=== PATIENT | female | born 1960 | race Caucasian/White ===

== ENCOUNTER 2020-08-17 08:21 | Outpatient (REF) | payer BC, SELFPAY ==
[2020-08-17 09:55] LABS: Alanine Aminotransferase 23 U/L (0-31); Albumin Level 4.5 g/dL (3.5-5.0); Alkaline Phosphatase 57 U/L (39-117); Anion Gap 12 (12-20); Aspartate Amino Transferase 19 U/L (5-31); Bilirubin Total 0.5 mg/dL (0.0-1.0); Blood Urea Nitrogen 16 mg/dL (9-16); Calcium 9.2 mg/dL (8.4-10.2); Carbon Dioxide 30 mmol/L (22-29); Chloride 102 mmol/L (96-108); Cholesterol 185 mg/dL; Estimated Glomerular Filt Rate > 60; Glucose Fasting 98 mg/dL (60-99); HDL Cholesterol 64 mg/dL; LDL Cholesterol Calculated 97 mg/dl; Potassium 4.6 mmol/l (3.3-5.1); Sodium 139 mmol/L (135-145); Total Protein 7.1 g/dL (6.5-8.0); Triglycerides 123 mg/dL
[2020-08-17 10:17] LABS: TSH reflex Free T4 1.63 mIU/mL (0.32-4.0)
== END 2020-08-17 08:22 | disposition home or self-care (01) ==
LOC: HO.LAB 08:21
PROVIDERS: Visit Provider Family Medicine
DX: Z00.00 Encounter for general adult medical examination without abnormal findings (principal)
CPT/HCPCS: 80053; 80061; 84443

== ENCOUNTER 2020-11-13 07:17 | Day surgery (SDC) | payer BC, SELFPAY ==
--- NOTE | 2020-11-12 10:39 | HO.ANESPROP2 ---
Documented by User: Suzy Taylor 11/12/20 13:44 HPI - Anesthesia Eval Consult details Narrative: 60yo F for Colonoscopy PMFSH Active Problems Active Problems: All Active Problems (Updated 11/09/20 @ 09:25 by Lucia Trevizo) Annual physical exam (Acute) Essential hypertension (Acute) Hyperlipidemia (Acute) Breast cancer screening by mammogram (Acute) Screening for colon cancer (Acute) Screening for cervical cancer (Acute) Screening for osteoporosis (Acute) Postmenopausal (Acute) Eczema of both external ears (Acute) Heart murmur (Acute) Mitral regurgitation (Acute) Past Medical History Medical History (Updated 11/12/20 @ 10:39 by Suzy Taylor) Elevated cholesterol HTN (hypertension) Hx of cardiac murmur Mitral regurgitation Surgical History Surgical History (Updated 11/09/20 @ 09:25 by Lucia Trevizo) H/O colonoscopy History of breast lump/mass excision Hx of section Social History Social History (Updated 11/13/20 @ 08:34 by Isabelle Son) Smoking Status: Never smoker Advance Directives Information Provided: No Meds Allergies Allergy/AdvReac Type Severity Reaction Status Date / Time No Known Allergies Allergy Verified 08/21/20 17:01 Home Medications Medication Instructions Recorded Confirmed Last Taken Type aspirin 81 mg tablet,delayed 81 mg PO DAILY 08/21/20 11/09/20 Unknown History release clobetasol 0.05 % topical ointment g TOPICAL Q OTHER DAY 08/21/20 Unknown History Exam Exam Date and Time: November 12, 2020 1039 Height,Weight and Vital Signs: Height 5 ft 1 in Weight 72.121 kg Narrative Narrative: Stress 2016 WNL Assessment and Plan Assessment Anesthesia Assessment: Chart Reviewed Documented by User: Isabelle Son 11/13/20 08:37 PMFSH Past Medical History Medical History (Updated 11/12/20 @ 10:39 by Suzy Taylor) Elevated cholesterol HTN (hypertension) Hx of cardiac murmur Mitral regurgitation Family History Family history of problems with anesthesia: No Surgical History Surgical History (Updated 11/09/20 @ 09:25 by Lucia Trevizo) H/O colonoscopy History of breast lump/mass excision Hx of section History of Problems with Anesthesia: Yes (PONV) Social History Social History (Updated 11/13/20 @ 08:34 by Isabelle Son) Smoking Status: Never smoker Advance Directives Information Provided: No Meds Allergies Allergy/AdvReac Type Severity Reaction Status Date / Time No Known Allergies Allergy Verified 08/21/20 17:01 Home Medications Medication Instructions Recorded Confirmed Last Taken Type aspirin 81 mg tablet,delayed 81 mg PO DAILY 08/21/20 11/09/20 Unknown History release clobetasol 0.05 % topical ointment g TOPICAL Q OTHER DAY 08/21/20 Unknown History Exam Height,Weight and Vital Signs: Vital Signs Temp Pulse Resp BP Pulse Ox 11/13/20 07:37 97.9 F 68 16 145/71 H 98 Airway Mallampati Class: II TM Dist: >3cm Neck ROM: Full Heart: RRR +?systolic murmur Lungs: CTAB Assessment and Plan Assessment Anesthesia Assessment: Anesthesia Plan Discussed and Chart Reviewed Final Anesthetic Review NPO: Yes ASA Class: II Final Preanesthetic Review: No Changes in Pt Med Stat, Meds/Allgs Chart Reviewed, Consent Obtained/Reviewed and Anes Risks/Benef Reviewed Patient Risk: Low Procedure Risk: Low Assessment/Block/Sedation in SS: Assess/Block/Sedation-SS Anesthetic Plan Anesthetic Plan: MAC: Disposition: Standard PACU
[2020-11-13 07:37] VITALS: BP 145/71; PULSE 68; RESP 16; TEMP 36.6; O2SAT 98
[2020-11-13] MEDS: Lactated Ringers 1,000 ML 100 ML IVCONT (07:49)
--- NOTE | 2020-11-13 08:07 | W.PM.OPN ---
Operative Note Operative Note Date of Service: 11/13/20 Narrative: Pre-op diagnosis: Colon cancer screening, min constipation Post-op diagnosis: other (Colon polyps, diverticulosis) Procedure: COLONOSCOPY TILL CECUM WITH BIOPSY, SNARE POLYPECTOMY AND SUBMUCOSAL INJECTION Consent: Indications for the procedure and potential complications of bleeding, perforation, reaction to medications and missed diagnosis were discussed with the patient and informed consent was obtained. Instrument: Olympus PCF H 190 L variable stiffness pediatric colonoscope Monitoring: Vital signs and clinical assessment, intermittent blood pressure monitoring, continuous EKG monitoring, Pulse oximetry and Carbon Dioxide monitoring were done throughout the procedure. Colon withdrawl time was 22 minutes. Procedure: The patient was placed in the left lateral decubitis position and pre-procedure medications were administered. After a digital rectal examination of the ano-rectum, the video colonoscope was inserted into the rectum and advanced through the colon to the cecum. The colonoscope was slowly withdrawn in a retrograde panoramic fashion and the colon mucosa was carefully examined including a retroflexed view of the rectum. Findings and interventions are described below. Procedure Difficulty: Colon was long and tortuous and there was some loop formation, no maneuvers were required Findings: Terminal Ileum: Not evaluated Cecum: A 4-5 mm flat polyp removed with a cold biopsy Ascending Colon: Normal Transverse Colon: A 1.5 to 2 cms flat polyp in the distal TC at 60 cms - raised with 2 cc of Orise solution (submucosal injection) and removed with a hot snare Descending Colon: Normal Sigmoid Colon: Moderate diverticulosis Rectum: Normal Ano-rectum: Perianal skin tags Colon preparation: Good after some irrigation (pt took 60% of her prep) Impression and Post Procedure Diagnosis: Colonoscopy Findings: Two small to medium sized polyps removed Moderate diverticulosis seen in the []colon Moderate hemorrhoids on retroflexed exam. Plan: Await pathology results Patient has an appointment on 11/30/20 in the [facility] with Larissa Boswell NP. Repeat Colonoscopy interval based on path results - in 3 years if polyps are adenomatous and 10 years if polyps are hyperplastic. Above findings were reviewed with the patient and colon polyps and diverticulosis handouts were given in the discharge area Surgeon: Ksenia Lepe MD Anesthesia: MAC (Jenny Jose CRNA & Dr Son) Estimated blood loss (mL): 0 Pathology: other (A. cecal polyp, B. TC polyp at 60 cms x 1) Condition: stable Disposition: PACU
--- NOTE | 2020-11-13 08:07 | MHC.SHP ---
Pre-Procedural Eval Section A The patient is an INPATIENT: No The History & Physical has been completed within 30 days and I have reviewed it.: No Section B Chief Complaint: screening Details of Present Illness: Colon cancer screening, intermittent constipation Relevant Family History (Specify if Yes): No Relevant Social History: None Present Medications: see Short Stay Collaborative assessment Medical History: Significant History (Hypertension. Hyperlipidemia. ) History of Previous Operations: Relevant previous surgery/procedure and date(s) ( section cyst removal right breast ) Allergies: Allergies Allergy/AdvReac Type Severity Reaction Status Date / Time No Known Allergies Allergy Verified 08/21/20 17:01 Review of Systems Sugical H&P ROS: Negative: Constitution, Cardiovascular and Respiratory and Yes, Specify: Gastrointestinal (Intermittent constipation) Exam Surgical H&P Exam: Normal: Heart, Normal: Lungs, Normal: Extremities and Normal: Abdomen Plan Diagnosis/Plan: Unchanged I have reviewed the history and physical and performed a pertinent physical examination on my patient. No changes have occurred unless specified.
[2020-11-13 09:09] VITALS: BP 117/60; PULSE 64; RESP 16; TEMP 36.7; O2SAT 99
[2020-11-13 09:24] VITALS: BP 129/70; PULSE 62; RESP 18; TEMP 36.7; O2SAT 98
== END 2020-11-13 10:06 | disposition home or self-care (01) ==
PROVIDERS: PCP Family Medicine; Visit Provider Internal Medicine Gastroenterology
PROC: 0DJD8ZZ Inspection of Lower Intestinal Tract, Via Natural or Artificial Opening Endoscopic (ICD-10-PCS; CPT 45378; principal; 2020-11-13 08:20)
DX: Z12.11 Encounter for screening for malignant neoplasm of colon (principal); D12.0 Benign neoplasm of cecum; D12.3 Benign neoplasm of transverse colon; K57.30 Diverticulosis of large intestine without perforation or abscess without bleeding; K64.8 Other hemorrhoids; K64.4 Residual hemorrhoidal skin tags; I10 Essential (primary) hypertension; Z79.899 Other long term (current) drug therapy
CPT/HCPCS: 45385; 45380; 45381; 88305; J2405

== ENCOUNTER → 2020-11-30 09:17 | Outpatient (BNVA) | payer BC, SELFPAY | PROVIDERS: PCP Family Medicine; Visit Provider Nurse Practitioner ==

== ENCOUNTER → 2021-11-18 07:37 | Outpatient (REF) | payer BC, SELFPAY ==
--- NOTE | 2021-11-18 07:46 | CA_ITS ---
Transthoracic Echocardiogram Patient (Last, First, Middle): Zoya Jeffery M Gender: Female Date of : 1960 Age: 61 Procedure Date: 11/18/2021 Procedure Type: Transthoracic Echocardiogram Location: OP Height: 154.94 cm Weight: 76.2 kg BSA: 1.75 m2 Heart Rate: bpm BP: 131 / 78 mmHg Washing Machine Repairer: TREMAINE Referring MD: Víctor Cat MD Symptoms: R01.1 - Cardiac murmur, unspecified Study Quality: Fair ECG Rhythm: Sinus Conclusions: - The left ventricular systolic function is normal. The calculated ejection fraction is 62% by biplane method. - There is mild to moderate aortic valve stenosis. Findings Left Ventricle Normal left ventricular cavity size. There is normal left ventricular wall thickness. The left ventricular systolic function is normal. The calculated ejection fraction is 62% by biplane method. There is no evidence of regional wall motion abnormalities. Diastolic function is normal for age. Right Ventricle Normal right ventricular cavity size and systolic function. Atria Both atria are normal in size. Aortic Valve There is mild calcification of the aortic valve. There is mild to moderate aortic valve stenosis. The peak aortic velocity is 2.89 m/s with a calculated peak gradient of 33 mmHg. The mean gradient is 18 mmHg. The aortic valve area is 1.04 cm2. There is no aortic valve regurgitation. Dimensionless index 0.35. Stroke volume index 41cc. Mitral Valve The mitral valve appears normal. There is trace mitral valve regurgitation. There is no mitral valve stenosis. Pulmonic Valve The pulmonic valve was not well visualized. Tricuspid Valve There is trace tricuspid valve regurgitation. The pulmonary artery systolic pressure is normal. Great Vessels The asc aorta and aortic arch are normal in size. Venous The inferior vena cava is normal in size and collapses greater than 50% with inspiration. Pericardium/Pleural There is a trivial pericardial effusion. Prior Study Comparison Changes noted compared to prior study dated: 12/30/2010. Progression of aortic valve stenosis. Measurements 2D Linear Measurements IVSd: 0.96 0.6-0.9/0.6-1.0 cm LVIDd: 5.19 3.9-5.3/4.2-5.9 cm LVIDd Index: 2.97 2.4-3.2/2.2-3.1 cm/m2 LVIDs: 3.50 2.0-3.6 cm LVPWd: 0.92 0.7-1.1 cm LA Diam: 4.30 2.7-3.8/3.0-4.0 cm LAIDs Index: 2.46 1.5-2.3 cm/m2 LV Mass: 221.83 67-162/88-224 g LV Mass Index: 126.76 43-95/49-115 g/m2 LVOT Diam: 2.00 3.0+(-)1.3 cm 2D Systolic Function EF 4C: 58.40 >55% EF 2C: 64.80 >55% EF BiP: 61.70 >55% Mitral Valve MV Pk E: 0.94 MV PK A: 0.86 MV Decel Time: 173.00 E/A: 1.10 E'Lateral: 7.83 E'Medial: 8.05 E/E' Med: 11.70 E/E' Lat: 12.00 PHT: 51.00 MVA PHT: 4.31 Decel [place]: 5.46 Aortic Valve AoV Pk Ryland: 2.89 AoV Mn Ryland: 1.99 AoV VTI: 0.70 AoV Pk Grad: 33.00 Aov Mn Grad: 18.00 KEENAN Cont.VTI: 1.04 LVOT LVOT Pk [place]: 1.02 LVOT Mn [place]: 0.79 LVOT VTI: 0.23 LVOT Pk Grad: 4.00 LVOT Mn Grad: 3.00 LVOT Diam: 2.00 LVOT Area: 3.14 Diastolic Function MV Pk E: 0.94 MV Pk A: 0.86 E/A: 1.10 E'Medial: 8.05 E/E' Med: 11.70 E' Laterial: 7.83 E/E' Lat: 12.00 Right Ventricle TAPSE (mm): 25.60 TVS' R[place]: 11.20 Tricuspid Valve TR Pk Ryland: 2.44 TR Pk Grad: 24.00 RA Press: 3.00 RVSP: 27.00 Great Vessels Aorta Sinus of Valsalva: 2.37 2.0-3.[address] [place]: 1.78 1.7-3.4 cm Ao Asc: 2.90 2.1-3.4 cm Ao Arch: 2.70 Updated in Other Vendor System with Status of Final Melo Balderas MD electronically signed on 11/19/2021 11:40:53 AM with status of Final
[2021-11-18 09:33] LABS: Alanine Aminotransferase 26 U/L (0-31); Albumin Level 4.5 g/dL (3.5-5.0); Alkaline Phosphatase 63 U/L (39-117); Anion Gap 15 (12-20); Aspartate Amino Transferase 22 U/L (5-31); Bilirubin Total 0.2 mg/dL (0.0-1.0); Blood Urea Nitrogen 17 mg/dL (9-16); Calcium 9.7 mg/dL (8.4-10.2); Carbon Dioxide 25 mmol/L (22-29); Chloride 105 mmol/L (96-108); Cholesterol 181 mg/dL; Estimated Glomerular Filt Rate > 60; Glucose Fasting 103 mg/dL (60-99); HDL Cholesterol 65 mg/dL; LDL Cholesterol Calculated 98 mg/dl; Potassium 4.8 mmol/L (3.3-5.1); Sodium 140 mmol/L (135-145); Total Protein 7.8 g/dL (6.5-8.0); Triglycerides 90 mg/dL
[2021-11-18 09:40] LABS: Microalbumin Urine < 5.0 mg/L
[2021-11-18 09:45] LABS: TSH reflex Free T4 1.39 uIU/mL (0.32-4.0)
== END ==
LOC: HO.CARD 07:37
PROVIDERS: PCP Family Medicine; Visit Provider Family Medicine
DX: Z00.00 Encounter for general adult medical examination without abnormal findings (principal); R01.1 Cardiac murmur, unspecified; I10 Essential (primary) hypertension
CPT/HCPCS: 36415; 80053; 80061; 82043; 84443; 93306

== ENCOUNTER → 2022-01-07 14:41 | Outpatient (BNVA) | payer BC, SELFPAY | PROVIDERS: PCP Family Medicine; Referring Provider Family Medicine; Visit Provider Internal Medicine | DX: Z13.89 Encounter for screening for other disorder (principal) ==

== ENCOUNTER → 2022-01-17 07:53 | Outpatient (REF) | payer BC, SELFPAY ==
--- NOTE | 2022-01-17 07:58 | CA_ITS ---
Acquisition Time: 2022-01-17 08:11:30 Total Exercise Time: 00:09:00 Test Indications: HEART DISEASE Medications: SEE CHART Protocol: WAGNER Max HR: 151 BPM 96% of Pred: 157 BPM Max BP: 190/062 mmHG Max Work Load: 10.1 METS Exercise stress test with exercise 9 min of Wagner protocol, without anginal symptom or report of lightheadedness, with isolated PACs, atrial cuplets and triplets, with normotensive response to exercise, without EKG chnages meeting criteria for ischemia. Test reviewed with Dr Abad Referred By: Melo Balderas Overread By: NIKOLAS LEMUS
== END ==
LOC: HO.CARD 07:53
PROVIDERS: PCP Family Medicine; Visit Provider Internal Medicine
DX: R01.1 Cardiac murmur, unspecified (principal); Z82.49 Family history of ischemic heart disease and other diseases of the circulatory system
CPT/HCPCS: 93017

== ENCOUNTER → 2023-01-05 07:57 | Outpatient (REF) | payer BC, SELFPAY ==
--- NOTE | 2023-01-05 08:00 | CA_ITS ---
Transthoracic Echocardiogram Patient (Last, First, Middle): Zoya eJffery M Gender: Female Date of : 1960 Age: 63 Procedure Date: 01/05/2023 Procedure Type: Transthoracic Echocardiogram Location: OP Height: 152.4 cm Weight: 73.48 kg BSA: 1.71 m2 Heart Rate: bpm BP: 124 / 68 mmHg Tube Coremaker: Referring MD: Melo Balderas MD Open Hearth Furnace Operator: Kemal Abad MD Symptoms: I35.0 - Nonrheumatic aortic (valve) stenosis Study Quality: Good ECG Rhythm: Sinus Conclusions: - 1. Normal LV systolic function with LVEF of 60 65% 2. Moderate aortic stenosis with mean gradient of 19 mmHg 3. Normal RV systolic pressure 4. No gross pericardial effusion Findings Left Ventricle Normal left ventricular size, thickness, and systolic function. The visually estimated ejection fraction is between 60-65%. Spectral Doppler is indicative of a normal filling pattern. Right Ventricle Normal right ventricular cavity size and systolic function. Atria The left atrium is likely dilated. Interatrial shunt cannot be excluded. The right atrium is normal in size. Aortic Valve The aortic valve was not well visualized. There is moderate aortic valve stenosis. The peak aortic gradient is 39 mmHg.The mean gradient is 19 mmHg. The aortic valve area is 1.01 cm2. There is no aortic valve regurgitation. calculated valve area is smaller than expected with the gradient, most likely due to calculated LVOT area. Dimensionless index is in the moderate severity range Mitral Valve There is mild anterior and posterior mitral leaflet thickening. There is trace mitral valve regurgitation. There is no mitral valve stenosis. Pulmonic Valve The pulmonic valve was not well visualized. Tricuspid Valve Normal tricuspid valve structure. There is mild tricuspid valve regurgitation. The right ventricular systolic pressure is normal. The right ventricular systolic pressure is 24 mmHg. Normal right atrial pressure. There is no evidence of pulmonary hypertension. Great Vessels All visible segments of the aorta are normal in size. The pulmonary artery was not well visualized. Venous The inferior vena cava is normal in size and collapses greater than 50% with inspiration. Pericardium/Pleural There is no evidence of pericardial effusion. Prior Study Comparison Changes noted compared to prior study dated: 11/18/2021. aortic stenosis in moderate range Measurements 2D Linear Measurements IVSd: 1.09 0.6-0.9/0.6-1.0 cm LVIDd: 4.20 3.9-5.3/4.2-5.9 cm LVIDd Index: 2.46 2.4-3.2/2.2-3.1 cm/m2 LVIDs: 2.33 2.0-3.6 cm LVPWd: 1.07 0.7-1.1 cm Ao Root: 2.70 2.1-3.5 cm LA Diam: 3.90 2.7-3.8/3.0-4.0 cm LAIDs Index: 2.28 1.5-2.3 cm/m2 LV Mass: 190.50 67-162/88-224 g LV Mass Index: 111.40 43-95/49-115 g/m2 LVOT Diam: 1.90 3.0+(-)1.3 cm Mitral Valve MV Pk E: 0.76 MV PK A: 0.85 MV Decel Time: 186.00 E/A: 0.90 E'Lateral: 7.72 E'Medial: 6.09 E/E' Med: 12.50 E/E' Lat: 9.80 PHT: 55.00 MVA PHT: 4.00 Decel [place]: 4.08 Aortic Valve AoV Pk Ryland: 3.12 AoV Mn [place]: 2.00 AoV VTI: 0.73 AoV Pk Grad: 39.00 Aov Mn Grad: 19.00 KEENAN Cont.VTI: 1.01 LVOT LVOT Pk [place]: 1.03 LVOT Mn [place]: 0.73 LVOT VTI: 0.26 LVOT Pk Grad: 4.00 LVOT Mn Grad: 2.00 LVOT Diam: 1.90 LVOT Area: 2.84 Diastolic Function MV Pk E: 0.76 MV Pk A: 0.85 E/A: 0.90 E'Medial: 6.09 E/E' Med: 12.50 E' Laterial: 7.72 E/E' Lat: 9.80 Right Ventricle TAPSE (mm): 29.00 TVS' [place]: 11.00 Tricuspid Valve TR Pk [place]: 2.31 TR Pk Grad: 21.00 RA Press: 3.00 RVSP: 24.00 Great Vessels Aorta Ao Root-2D: 2.70 2.0-3.7 cm Ao Asc: 2.50 2.1-3.4 cm Pulmonary Valve PV Pk [place]: 1.19 Peak PV Grad: 6.00 Updated in Other Vendor System with Status of Final Kemal Abad MD electronically signed on 01/06/2023 6:46:32 PM with status of Final
== END ==
LOC: HO.CARD 07:57
PROVIDERS: PCP Family Medicine; Visit Provider Internal Medicine
DX: I35.0 Nonrheumatic aortic (valve) stenosis (principal)
CPT/HCPCS: 93306

== ENCOUNTER → 2023-01-14 15:10 | Outpatient (BNVA) | payer BC, SELFPAY | PROVIDERS: PCP Family Medicine; Referring Provider Family Medicine; Visit Provider Internal Medicine | DX: I35.0 Nonrheumatic aortic (valve) stenosis (principal); I10 Essential (primary) hypertension | CPT/HCPCS: 93005 ==

== ENCOUNTER 2023-04-10 08:58 | Outpatient (REF) | payer BC, SELFPAY ==
[2023-04-10 13:40] LABS: Estimated Average Glucose 108 mg/dL; Hemoglobin A1c % 5.4 %
[2023-04-10 15:13] LABS: Appearance Urine Clear; Color Urine Yellow; Glucose Urine UA Negative (Negative); Leukocyte Esterase Urine Moderate (2+) (Negative); Nitrite Urine Negative (Negative); PH 7.5 (5.0-9.0); Specific Gravity - Urine <= 1.005 (1.005-1.025); UMIC TRIGGER UA YES; Urine Blood Negative (Negative); Urine Ketones Negative (Negative); Urine Protein Negative (Neg-Trace)
[2023-04-10 15:26] LABS: Alanine Aminotransferase 23 U/L (0-31); Albumin Level 4.2 g/dL (3.5-5.0); Alkaline Phosphatase 57 U/L (39-117); Anion Gap 14 (12-20); Aspartate Amino Transferase 17 U/L (5-31); Bacteria Urine None Seen (None Seen); Bilirubin Total 0.3 mg/dL (0.0-1.0); Blood Urea Nitrogen 12 mg/dL (9-16); Calcium 9.1 mg/dL (8.4-10.2); Carbon Dioxide 23 mmol/L (22-29); Chloride 106 mmol/L (96-108); Cholesterol 162 mg/dL; Estimated Glomerular Filt Rate > 60; Glucose Fasting 94 mg/dL (60-99); HDL Cholesterol 63 mg/dL; Hyaline Casts Urine 0-2 /LPF (0-2); LDL Cholesterol Calculated 74 mg/dl; Magnesium 2.2 mg/dL (1.6-2.6); Potassium 4.2 mmol/L (3.3-5.1); RBC Urine 0-2 /HPF (0-2); Sodium 139 mmol/L (135-145); Squamous Epithelial Cell Urine 0-2 /HPF (0-2); TSH reflex Free T4 1.47 uIU/mL (0.32-4.0); Total Protein 7.2 g/dL (6.5-8.0); Triglycerides 127 mg/dL; WBC Urine 0-5 /HPF (0-5)
[2023-04-10 17:03] LABS: Creatinine Urine 17.52 mg/dL; Microalbumin Urine < 5.0 mg/L
== END 2023-04-10 08:59 | disposition home or self-care (01) ==
LOC: HO.WFDLDS 08:58
PROVIDERS: Visit Provider Family Medicine
DX: Z00.00 Encounter for general adult medical examination without abnormal findings (principal); I10 Essential (primary) hypertension; R73.01 Impaired fasting glucose
CPT/HCPCS: 36415; 80053; 80061; 81001; 81003; 82043; 83036; 83735; 84443

== ENCOUNTER 2023-04-21 13:56 | Outpatient (AMB) | payer BC, SELFPAY ==
[2023-04-21 14:00] VITALS: BP 126/64; PULSE 67; O2SAT 98; BMI 31.2
--- NOTE | 2023-04-21 14:00 | MHC.PC.OV ---
Vital Signs 04/21/23 14:00 Height 5 ft 1 in Weight 165 lb BMI 31.2 BP 126/64 Blood Pressure Location Lt brachial Position Sitting Pulse 67 Pulse Source Pulse Oximeter Pulse Oximetry (%) 98 Oxygen Delivery Method Room Air Intake Visit Reasons: CPE with f/u labs and health maintenance Intake Note: Patient is here for physical and to follow up on labs. Allergies No Known Allergies Allergy (Verified 04/21/23 14:04) Tobacco use date assessed: 04/21/23 Dental Screening Dental Screen Date: 04/21/23 Did you have a dental visit in the last 12 months?: Yes Did you have a dental problem in the last 6 months where you did not have access to dental care?: No Was dental information given to patient?: Patient has dentist HPI CPE with f/u labs and health maintenance HPI Details 63 y/o female presents for a CPE with f/u labs and health maintenance. Labs were drawn 04/10/23. Reviewed labs with pt. Triglycerides 127. TC 162. LDL 74. HDL 63. A1c 5.4%. Hx of aortic stenosis. Blood pressure today is 126/64. She is on lisinopril 20mg and amlodipine 5mg daily. [facility] Medical History Annual physical exam Breast cancer screening by mammogram Elevated cholesterol HTN (hypertension) Hx of cardiac murmur Mitral regurgitation Screening for cervical cancer Surgical History H/O colonoscopy History of breast lump/mass excision Hx of section Family History Father Lymphoma Diabetes Heart disease Mother Heart attack Social History Housing: House Alcohol intake: current Alcohol intake frequency: a few times a week Patient Tobacco Use Status: Never used Tobacco e-Cigarette/Vaping Use: Never Used Second Hand Smoke Exposure: No service: No Current occupational status: employed Current occupational exposures/hazards: No Cognitive needs: No Hearing needs: No Vision needs: No Questionnaire Thrive Questionnaire Date Thrive assessed: 02/18/23 FAHAD-7 AMB Questionnaire FAHAD-7 Date FAHAD - 7 assessed: 03/14/22 Source: Developed by Drs. Otto Mckinnon, Cassandra Hart, Larry Reis and colleagues, with an educational edith from [employer]. Review of Systems Const Denies chills, Denies fatigue, Denies fever(s), Denies headache(s) and Denies weakness Eyes Denies change in vision ENT Denies dizziness, Denies headache(s), Denies hearing loss, Denies nasal congestion, Denies sinus pain, Denies sinus pressure and Denies sore throat Card Denies chest pain, Denies lightheadedness, Denies dyspnea and Denies other (palpitations) Resp Denies cough, Denies dyspnea and Denies wheezing GI Denies abdominal pain, Denies melena, Denies hematochezia, Denies change in bowel habits, Denies dyspepsia and Denies nausea Denies hematuria and Denies dysuria Musc Denies abnormal gait, Denies myalgias, Denies arthralgias, Denies numbness and Denies tingling Skin/Breast Denies rash, Denies unusual bruising and Denies wounds Neuro Denies abnormal gait, Denies dizziness, Denies headache(s), Denies memory loss, Denies numbness, Denies Sensory deficit (Neuro), Denies tingling and Denies weakness Psych Denies anxiety, Denies depression and Denies memory loss Endo Denies cold intolerance, Denies fatigue, Denies heat intolerance, Denies polydipsia and Denies polyuria Junior/Lymph Denies easy bleeding and Denies easy bruising Aller/Immun Denies wheezing Physical exam (Primary Care) Vital Signs: Last Vital Signs Pulse 67 04/21/23 14:00 BP 126/64 04/21/23 14:00 Pulse Ox 98 04/21/23 14:00 Oxygen Delivery Method Room Air 04/21/23 14:00 BMI result Body Mass Index 31.2 Tobacco/Smoking Status: Tobacco use Status Tobacco use date assessed 04/21/23 04/21/23 14:10 Patient Tobacco Use Status Never used Tobacco 04/21/23 14:03 e-Cigarette/Vaping Use Never Used 04/21/23 14:03 Thrive Assessment: Date of Thrive Assessment Date Thrive assessed 02/18/23 04/21/23 14:03 Const General: no acute distress, well developed, alert and awake Nutritional Appearance: well nourished Orientation/consciousness: patient oriented x3 HENMT Head: Yes normocephalic and Yes atraumatic Ears: hearing grossly normal bilaterally and TM's normal bilaterally General nose exam: Normal external nose present and Normal nares present Mouth: Normal oral and palatal mucosa present and moist mucous membranes Teeth and gingiva: dentition normal Throat: Yes posterior oropharynx normal Eyes General: appearance normal, both eyes and all related structures Pupils: Equal, round and reactive pupils present and Pupil accommodation reflex normal EOM: EOMs intact bilaterally Neck Neck: Yes normal visual inspection, Yes no lymphadenopathy and Yes trachea midline Thyroid: Thyroid normal Carotids: no bruits Lymphatic: no lymphadenopathy noted Chest Chest palpation & inspection: normal inspection of the chest Resp Effort & Inspection: normal respiratory effort Auscultation: clear to auscultation bilaterally Cardio Rate: regular rate Rhythm: regular rhythm Heart sounds: S1 normal heart sound present, S2 normal heart sound present, no gallops, Murmur heart sound present (3/6 murmur) and no rubs Bruits: no abdominal aortic bruits and no carotid bruits GI Palpation (GI): No Abdominal aortic bruit present, Soft to palpation, nontender, No hepatosplenomegaly present and No Rebound tenderness present Auscultation: normal bowel sounds General: Yes no CVA tenderness Back/Spine/Pelvis Back: no CVA tenderness Cervical Spine: cervical ROM normal and No Cervical spine tenderness Thoracic/Lumbar Spine: thoraco-lumbar ROM normal, No pain with thoraco-lumbar ROM, No thoracic spinal tenderness and No lumbar spinal tenderness Skin Lesions: no lesions Rashes: no rashes Trauma: no lacerations or abrasions Wounds: no wounds Nails: normal Neuro General: patient oriented x3 Cranial nerves: Yes Equal, round and reactive pupils present Cognition (Neuro): normal cognition Gait exam (Neuro): Normal gait present Motor exam (neuro): 5/5 motor strength present throughout Sensory Exam: No Sensory deficit (Neuro) Deep tendon reflexes (DTR's): Right patellar reflex intensity grade: 2+ and Left patellar reflex intensity grade: 2+ Extrem General: Yes normal to inspection and No edema Psych Appearance: grossly normal Affect: normal affect Attitude: cooperative Thought process: Normal thought process present Assessment and Plan Assessment & Plan (1) Adult general medical exam: Code(s): Z00.00 - Encounter for general adult medical examination without abnormal findings Plan: 63-year-old female presents for complete physical exam Encouraged healthy diet with active lifestyle and plenty of exercise (2) Essential hypertension: Code(s): I10 - Essential (primary) hypertension Plan: Blood pressure now at goal of less than 130/80 Continue current medication (3) Hyperlipidemia: Code(s): E78.5 - Hyperlipidemia, unspecified Plan: Lipids are controlled on simvastatin Continue current medication regimen Advised weight loss and exercise (4) Non-rheumatic aortic stenosis: Code(s): I35.0 - Nonrheumatic aortic (valve) stenosis Plan: Followed by cardiology at [facility] [place] Control blood pressure Continue to follow-up with Cardiology as recommended (5) Screening for colon cancer: Code(s): Z12.11 - Encounter for screening for malignant neoplasm of colon Plan: Last colonoscopy in 2020 showed polyps. She will have follow-up in 2023 (6) Immunization counseling: Code(s): Z71.85 - Encounter for immunization safety counseling Plan: Due for shingles shot and I recommended this (7) Screening for osteoporosis: Code(s): Z13.820 - Encounter for screening for osteoporosis Plan: Had prior to bone density testing for postmenopausal state. Will be due to begin screening next year (8) Breast cancer screening by mammogram: Code(s): Z12.31 - Encounter for screening mammogram for malignant neoplasm of breast Plan: Sep 2022 and was normal Managed by [facility] (9) Eczema of both external ears: Code(s): H60.543 - Acute eczematoid otitis externa, bilateral Plan: Currently no flare up. She can use set a fill or another moisturizing cream for prevention She can use betamethasone as she has in the past for any flare Coding Level of Care Code Est Pt Level 3 (16387) Est Pt Prev Care 40-64y(87947) Diagnoses Adult general medical exam Z00.00 Essential hypertension I10 Hyperlipidemia E78.5 Non-rheumatic aortic stenosis I35.0 Screening for colon cancer Z12.11 Immunization counseling Z71.85 Screening for osteoporosis Z13.820 Breast cancer screening by mammogram Z12.31 Eczema of both external ears H60.543
== END 2023-04-21 14:36 | disposition home or self-care (01) ==
PROVIDERS: PCP Family Medicine; Visit Provider Family Medicine
DX: Z00.00 Encounter for general adult medical examination without abnormal findings (principal); I10 Essential (primary) hypertension; E78.5 Hyperlipidemia, unspecified; I35.0 Nonrheumatic aortic (valve) stenosis
CPT/HCPCS: 99396

== ENCOUNTER 2023-08-21 10:43 | Outpatient (AMB) | payer BC, SELFPAY ==
[2023-08-21 10:58] VITALS: BP 134/76; PULSE 64; O2SAT 98; BMI 31.2
--- NOTE | 2023-08-21 10:58 | A.OFFPC_ITS ---
Vital Signs 08/21/23 10:58 Height 5 ft 1 in Weight 165 lb BMI 31.2 BP 134/76 Blood Pressure Location Lt brachial Position Sitting Pulse 64 Pulse Source Pulse Oximeter Pulse Oximetry (%) 98 Intake Visit Reasons: f/u hypertension and chronic conditions Intake Note: Patient is here to follow up on hypertension and chronic conditions. Allergies No Known Allergies Allergy (Verified 08/21/23 11:00) Tobacco use date assessed: 08/21/23 Fall risk assessment: No Falls in past year Last assessed Fall Risk: 08/21/23 HPI f/u hypertension and chronic conditions HPI Details 63 y/o female with hx of aortic stenosis presents to f/u hypertension. Blood pressure today 134/76. She is on amlodipine 5mg daily and lisinopril 20mg daily. She notes she has been stressed recently at work. REPLACED BY [facility] Medical History Annual physical exam Breast cancer screening by mammogram Elevated cholesterol HTN (hypertension) Hx of cardiac murmur Mitral regurgitation Screening for cervical cancer Surgical History H/O colonoscopy History of breast lump/mass excision Hx of section Family History Father Lymphoma Diabetes Heart disease Mother Heart attack Social History Housing: House Alcohol intake: current Alcohol intake frequency: a few times a week Patient Tobacco Use Status: Never used Tobacco e-Cigarette/Vaping Use: Never Used Second Hand Smoke Exposure: No service: No Current occupational status: employed Current occupational exposures/hazards: No Cognitive needs: No Hearing needs: No Vision needs: No Questionnaire PHQ-9 Over the last 2 weeks, how often have you been bothered by any of the following problems? 1. Little interest or pleasure in doing things: not at all 2. Feeling down, depressed, or hopeless: several days 3. Trouble falling or staying asleep, or sleeping too much: several days 4. Feeling tired or having little energy: not at all 5. Poor appetite or overeating: not at all 6. Feeling bad about yourself - or that you are a failure or have let yourself or your family down: not at all 7. Trouble concentrating on things, such as reading the newspaper or watching television: not at all 8. Moving or speaking so slowly that other people could have noticed. Or the opposite - being so fidgety or restless that you have been moving around a lot more than usual: not at all 9. Thoughts that you would be better off or of hurting yourself in some way: not at all Total score: 2 Depression Screening Interpretation: Negative Depression Screening Done: Yes Source: Developed by Drs. Otto Mckinnon, Cassandra Hart, Larry Reis and colleagues, with an educational edith from [employer]. Thrive Questionnaire Date Thrive assessed: 02/18/23 AUDIT C Alcohol Use Questionnaire (AUDIT-C) 1. How often do you have a drink containing alcohol?: 2-3 times a week 2. How many drinks containing alcohol do you have on a typical day when you are drinking?: 1 or 2 3. How often do you have six or more drinks on one occasion?: Never Total Score: 3 FAHAD-7 AMB Questionnaire FAHAD-7 Date FAHAD - 7 assessed: 08/21/23 Feeling nervous, anxious, or on edge: 1 = Several days Not being able to stop or control worryin = Not at all Worrying too much about different things: 0 = Not at all Trouble relaxin = Not at all Being so restless that it is hard to sit still: 0 = Not at all Becoming easily annoyed or irritable: 0 = Not at all Feeling afraid as if something awful might happen: 0 = Not at all Total FAHAD-7 score (0-4 normal; 5-9 mild; 10-14 moderate; 15-21 severe): 1 Source: Developed by Drs. Otto Mckinnon, Cassandra Hart, Larry Reis and colleagues, with an educational edith from [employer]. Review of Systems Const Denies chills, Denies fatigue, Denies fever(s), Denies headache(s) and Denies weakness ENT Denies dizziness and Denies headache(s) Card Denies dyspnea Resp Denies cough, Denies dyspnea, Denies wheezing and Denies other (shortness of breath) Musc Denies numbness and Denies tingling Neuro Denies dizziness, Denies headache(s), Denies numbness, Denies tingling and Denies weakness Psych Denies anxiety and Denies depression Endo Denies fatigue Aller/Immun Denies wheezing Physical exam (Primary Care) Vital Signs: Last Vital Signs Pulse 64 08/21/23 10:58 BP 134/76 08/21/23 10:58 Pulse Ox 98 08/21/23 10:58 BMI result Body Mass Index 31.2 Tobacco/Smoking Status: Tobacco use Status Tobacco use date assessed 08/21/23 08/21/23 11:02 Patient Tobacco Use Status Never used Tobacco 08/21/23 11:02 e-Cigarette/Vaping Use Never Used 08/21/23 11:02 PHQ-9: PHQ-9 Score PHQ-9: Total score 2 08/21/23 11:15 Depression Screening Interpretation: Negative Thrive Assessment: Date of Thrive Assessment Date Thrive assessed 02/18/23 08/21/23 11:02 Const General: well developed; No acute distress Nutritional Appearance: well nourished Orientation/consciousness: patient oriented x3 HENMT Head: Yes normocephalic and Yes atraumatic Eyes General: appearance normal, both eyes and all related structures Pupils: Equal, round and reactive pupils present EOM: EOMs intact bilaterally Resp Effort & Inspection: normal respiratory effort Neuro General: patient oriented x3 and gait normal Cranial nerves: Yes Equal, round and reactive pupils present Psych Affect: normal affect Assessment and Plan Assessment & Plan (1) Essential hypertension: Code(s): I10 - Essential (primary) hypertension Plan: Blood?pressure?is?a?little?above?goal?of?less?than?130/80?for?patient?with?aorti c?stenosis She?has?been?under? significant?stress?the?past?few?days?and?says?that?her?baseline?measurements?at? home?are?generally?lower. No?change?to?her?medication?regimen?today She?can?let?me?know?if?her?home?measurements?are?cr eeping?up?or?consistently?above?130/80. Encouraged?diet?exercise?and?weight?loss Will?follow-up?in?3?months (2) Aortic stenosis: Code(s): I35.0 - Nonrheumatic aortic (valve) stenosis Plan: Follow-up?with?Cardiology Coding Level of Care Code Est Pt Level 3 (65838) Diagnoses Essential hypertension I10 Aortic stenosis I35.0
== END 2023-08-21 11:26 | disposition home or self-care (01) ==
PROVIDERS: PCP Family Medicine; Visit Provider Family Medicine
DX: I10 Essential (primary) hypertension (principal); I35.0 Nonrheumatic aortic (valve) stenosis
CPT/HCPCS: 99213

== ENCOUNTER → 2024-01-06 07:53 | Outpatient (REF) | payer BC, SELFPAY ==
--- NOTE | 2024-01-06 07:56 | CA_ITS ---
Transthoracic Echocardiogram Patient (Last, First, Middle): Zoya Rios M Gender: Female Date of : 1960 Age: 64 Procedure Date: 01/06/2024 Procedure Type: Transthoracic Echocardiogram Location: OP Height: 152.4 cm Weight: 74.84 kg BSA: 1.72 m2 Heart Rate: bpm BP: 122 / 60 mmHg Clinical Law Professor: Referring MD: Melo Balderas MD Symptoms: I35.0 - Nonrheumatic aortic (valve) stenosis Study Quality: Adequate ECG Rhythm: Sinus Conclusions: - The left ventricular systolic function is normal. The calculated ejection fraction is 64% by biplane method. - There is moderate aortic valve stenosis. Possibly, bicuspid aortic valve. Findings Left Ventricle Normal left ventricular cavity size. There is mildly increased left ventricular wall thickness. The left ventricular systolic function is normal. The calculated ejection fraction is 64% by biplane method. There is no evidence of regional wall motion abnormalities. Diastolic function is normal for age. Right Ventricle Normal right ventricular cavity size and systolic function. Atria Both atria are normal in size. Aortic Valve There is mild calcification of the aortic valve. There is moderate aortic valve stenosis. The peak aortic velocity is 2.88 m/s with a calculated peak gradient of 33 mmHg. The mean gradient is 17 mmHg. The aortic valve area is 1.18 cm2. Possibly, bicuspid aortic valve. Dimensionless index 0.37. Mitral Valve The mitral valve appears normal. There is no mitral valve regurgitation. There is no mitral valve stenosis. Pulmonic Valve The pulmonic valve is likely normal. Tricuspid Valve Normal tricuspid valve structure. There is trace tricuspid valve regurgitation. There is no evidence of pulmonary hypertension. Great Vessels The asc aorta is normal in size. Venous The inferior vena cava is normal in size and collapses greater than 50% with inspiration. Pericardium/Pleural There is a small loculated pericardial effusion overlying the left ventricle. Prior Study Comparison No significant change compared to prior study dated: 01/05/2023. Measurements 2D Linear Measurements IVSd: 1.25 0.6-0.9/0.6-1.0 cm LVIDd: 4.42 3.9-5.3/4.2-5.9 cm LVIDd Index: 2.57 2.4-3.2/2.2-3.1 cm/m2 LVIDs: 2.47 2.0-3.6 cm LVPWd: 1.21 0.7-1.1 cm Ao Root: 2.30 2.1-3.5 cm LA Diam: 3.80 2.7-3.8/3.0-4.0 cm LAIDs Index: 2.21 1.5-2.3 cm/m2 LV Mass: 248.88 67-162/88-224 g LV Mass Index: 144.70 43-95/49-115 g/m2 LVOT Diam: 2.00 3.0+(-)1.3 cm 2D Systolic Function EF 4C: 64.00 >55% EF 2C: 63.00 >55% EF BiP: 64.10 >55% Mitral Valve MV Pk E: 0.99 MV PK A: 0.79 MV Decel Time: 220.00 E/A: 1.30 E'Lateral: 7.29 E'Medial: 7.29 E/E' Med: 13.60 E/E' Lat: 13.60 PHT: 65.00 MVA PHT: 3.38 Decel Chaves: 4.49 Aortic Valve AoV Pk Ryland: 2.88 AoV Mn Ryland: 1.86 AoV VTI: 0.71 AoV Pk Grad: 33.00 Aov Mn Grad: 17.00 KEENAN Cont.VTI: 1.18 LVOT LVOT Pk Ryland: 1.06 LVOT Mn Ryland: 0.76 LVOT VTI: 0.27 LVOT Pk Grad: 4.00 LVOT Mn Grad: 3.00 LVOT Diam: 2.00 LVOT Area: 3.14 Diastolic Function MV Pk E: 0.99 MV Pk A: 0.79 E/A: 1.30 E'Medial: 7.29 E/E' Med: 13.60 E' Laterial: 7.29 E/E' Lat: 13.60 Right Ventricle TAPSE (mm): 35.00 TVS' Ryland: 10.00 Tricuspid Valve TR Pk Ryland: 1.77 TR Pk Grad: 13.00 RA Press: 3.00 RVSP: 16.00 Great Vessels Aorta Ao Root-2D: 2.30 2.0-3.7 cm Ao Asc: 2.70 2.1-3.4 cm Pulmonary Valve PV Pk Ryland: 1.18 Peak PV Grad: 6.00 Updated in Other Vendor System with Status of Final Melo Balderas MD electronically signed on 01/08/2024 2:18:43 PM with status of Final
== END ==
LOC: HO.CARD 07:53
PROVIDERS: PCP Family Medicine; Visit Provider Internal Medicine
DX: I35.0 Nonrheumatic aortic (valve) stenosis (principal)
CPT/HCPCS: 93306

== ENCOUNTER → 2024-01-06 07:56 | Outpatient (BNV) | payer BC, SELFPAY | PROVIDERS: PCP Family Medicine; Visit Provider Internal Medicine | DX: I35.0 Nonrheumatic aortic (valve) stenosis (principal); I35.8 Other nonrheumatic aortic valve disorders | CPT/HCPCS: 93306 ==

== ENCOUNTER 2024-01-18 08:09 | Outpatient (AMB) | payer BC, SELFPAY ==
[2024-01-18 08:19] VITALS: BP 130/70; PULSE 67; BMI 31.4
--- NOTE | 2024-01-18 08:19 | A.OFFVIS_ITS ---
Vital Signs 01/18/24 08:19 Height 5 ft 1 in Weight 166 lb BMI 31.4 BP 130/70 Blood Pressure Location Lt brachial Position Sitting Pulse 67 Intake Visit Reasons: 1 yr s/p echo [employer] App[employer]ice [employer]ic Required: No Accompanied by: Self / Same As Patient Allergies No Known Allergies Allergy (Verified 08/21/23 11:00) Medication List - Last Reconciled 01/18/24 by Melo Balderas MD amlodipine 5 mg PO DAILY 90 days aspirin (Adult Low Dose Aspirin) 81 mg PO DAILY betamethasone, augmented 0.05 % (Diprolene (augmented)) 1 appl topical DAILY 30 days clobetasol 0.05% grams topical Q OTHER DAY docusate sodium 100 mg PO .every other day estradiol 0.01%(0.1mg/gram) grams vaginal lisinopril 20 mg PO DAILY 90 days multivitamin 1 tab PO DAILY simvastatin 20 mg PO BEDTIME HPI Comments Details: Zoya returns for follow-up regarding aortic stenosis. Overall, she is doing good. No complaints like exertional angina or shortness of breath or in fact anything along those lines. [facility] Medical History Mitral regurgitation Hx of cardiac murmur Elevated cholesterol HTN (hypertension) Screening for cervical cancer Breast cancer screening by mammogram Annual physical exam Surgical History H/O colonoscopy History of breast lump/mass excision Hx of section Family History Father Lymphoma Diabetes Heart disease Mother Heart attack Social History Housing: House Alcohol intake: current Alcohol intake frequency: a few times a week Patient Tobacco Use Status: Never used Tobacco e-Cigarette/Vaping Use: Never Used Second Hand Smoke Exposure: No service: No Current occupational status: employed Current occupational exposures/hazards: No Cognitive needs: No Hearing needs: No Vision needs: No Review of Systems Const Denies chills, Denies fatigue, Denies fever(s), Denies frequent falls, Denies weakness, Denies weight gain and Denies weight loss ENT Denies dizziness Card Denies chest pain, Denies leg edema, Denies lightheadedness, Denies palpitations, Denies dyspnea and Denies dyspnea on exertion Resp Denies cough, Denies dyspnea and Denies dyspnea on exertion GI Denies hematochezia Musc Denies abnormal gait, Denies muscle weakness, Denies numbness, Denies radiating pain into limb and Denies tingling Neuro Denies abnormal gait, Denies dizziness, Denies frequent falls, Denies numbness, Denies tingling and Denies weakness Endo Denies fatigue and Denies palpitations Physical Exam Vital Signs: Last Vital Signs Pulse 67 01/18/24 08:19 BP 130/70 01/18/24 08:19 BMI result Body Mass Index 31.4 Const General: comfortable and no acute distress Orientation/consciousness: patient oriented x3 HEENT Other: Unremarkable Head: Yes normal to inspection Neck Neck: Yes normal visual inspection Chest Chest palpation & inspection: normal inspection of the chest Resp Auscultation: clear to auscultation bilaterally Cardio Palpation: normal PMI Heart sounds: S1 normal heart sound present, S2 normal heart sound present, no gallops, Murmur heart sound present systolic III/ and at the right sternal border and no rubs GI Palpation (GI): Soft to palpation Back/Spine/Pelvis Other: unremarkable Skin General skin exam: no rashes or lesions noted Neuro General: patient oriented x3 Extrem General: Yes normal to inspection Psych Mental Status: mental status grossly normal Office Procedures EKG Details: EKG with sinus rhythm at 67/Min; MI prolongation to 230 millisecond; [place]. [id number], Complete Assessment & Plan Assessment & Plan (1) Non-rheumatic aortic stenosis: Code(s): I35.0 - Nonrheumatic aortic (valve) stenosis Category: Medical Plan: Echocardiogram suggestive of moderate aortic stenosis. Possible bicuspid aortic valve. Clinically, she is got absolutely no symptoms. Will continue to monitor. Also discussed about family screening with echocardiogram for bicuspid aortic valve. In the exercise stress test, she was able to exercise for 9 minutes on Jorge protocol, reached 10.1 Mets. No angina. Normal blood pressure response. No EKG evidence of ischemia. Overall, we will continue to monitor. Recheck echocardiogram in 1 year. (2) Essential hypertension: Code(s): I10 - Essential (primary) hypertension Category: Medical Plan: Stable. Remains on amlodipine, lisinopril. (3) First degree heart block: Code(s): I44.0 - Atrioventricular block, first degree Category: Medical Plan: Evidence of conduction system disease. Can be monitored on EKGs. Orders: Orders CA echo transthoracic complete 1 Year I35.0 - Nonrheumatic aortic (valve) stenosis Coding Level of Care Code Est Pt Level 4 (53665) Diagnoses Non-rheumatic aortic stenosis I35.0 Essential hypertension I10 First degree heart block I44.0 CPT Codes EKG - CPT: 62958-[id number], Complete ([id number])
== END 2024-01-18 08:40 | disposition home or self-care (01) ==
PROVIDERS: Visit Provider Internal Medicine
DX: I35.0 Nonrheumatic aortic (valve) stenosis (principal); I10 Essential (primary) hypertension; I44.0 Atrioventricular block, first degree
CPT/HCPCS: 93010; 99214

== ENCOUNTER → 2024-01-18 08:09 | Outpatient (BNVA) | payer BC, SELFPAY | PROVIDERS: Visit Provider Internal Medicine | DX: I35.0 Nonrheumatic aortic (valve) stenosis (principal); I10 Essential (primary) hypertension; I44.0 Atrioventricular block, first degree; Z79.899 Other long term (current) drug therapy | CPT/HCPCS: 93005 ==

== ENCOUNTER 2024-01-25 11:33 | Outpatient (AMB) | payer BC, SELFPAY ==
[2024-01-25 11:34] VITALS: BP 126/70; PULSE 59; O2SAT 100; BMI 31.2
--- NOTE | 2024-01-25 11:34 | A.OFFPC_ITS ---
Vital Signs 01/25/24 11:34 Height 5 ft 1 in Weight 165 lb 2 oz BMI 31.2 BP 126/70 Blood Pressure Location Lt brachial Position Sitting Pulse 59 Pulse Source Pulse Oximeter Pulse Oximetry (%) 100 Oxygen Delivery Method Room Air Intake Visit Reasons: Follow up HTN Intake Note: Patient is here to follow up on hypertension today. Patient would like a refill on Betamethasone today. Allergies No Known Allergies Allergy (Verified 01/25/24 11:38) Medication List - Last Reconciled 01/25/24 by Víctor Cat MD amlodipine 5 mg PO DAILY 90 days aspirin (Adult Low Dose Aspirin) 81 mg PO DAILY betamethasone, augmented 0.05 % (Diprolene (augmented)) 1 appl topical DAILY 30 days clobetasol 0.05% grams topical Q OTHER DAY docusate sodium 100 mg PO .every other day estradiol 0.01%(0.1mg/gram) grams vaginal lisinopril 20 mg PO DAILY 90 days multivitamin 1 tab PO DAILY simvastatin 20 mg PO BEDTIME Tobacco use date assessed: 01/25/24 Fall risk assessment: No Falls in past year Last assessed Fall Risk: 01/25/24 Dental Screening Dental Screen Date: 01/25/24 Did you have a dental visit in the last 12 months?: Yes Did you have a dental problem in the last 6 months where you did not have access to dental care?: No Was dental information given to patient?: Patient has dentist HPI Follow up HTN HPI Details 64 y/o female presents to f/u hypertensi on and pre-diabetes. Blood pressure today 126/70. She is on amlodipine 5mg, lisinopril 20mg daily. A1c today 01/25/24 5.8%. [facility] Medical History Mitral regurgitation Hx of cardiac murmur Elevated cholesterol HTN (hypertension) Screening for cervical cancer Breast cancer screening by mammogram Annual physical exam Surgical History H/O colonoscopy History of breast lump/mass excision Hx of section Family History (Updated 01/25/24 @ 11:43 by Cecilia Blackmon CMA) Father Lymphoma Diabetes Heart disease Mother Heart attack Maternal Uncle Substance abuse in family Maternal Aunt Substance abuse in family Brother Mental health disorder Social History Housing: House Alcohol intake: current Alcohol intake frequency: a few times a week Patient Tobacco Use Status: Never used Tobacco e-Cigarette/Vaping Use: Never Used Second Hand Smoke Exposure: No service: No Current occupational status: employed Current occupational exposures/hazards: No Cognitive needs: No Hearing needs: No Vision needs: No Questionnaire Thrive Questionnaire Date Thrive assessed: 02/18/23 FAHAD-7 AMB Questionnaire FAHAD-7 Date FAHAD - 7 assessed: 08/21/23 Source: Developed by Drs. Otto Mckinnon, Cassandra Hart, Larry Reis and colleagues, with an educational edith from [employer]. Physical exam (Primary Care) Vital Signs: Last Vital Signs Pulse 59 01/25/24 11:34 BP 126/70 01/25/24 11:34 Pulse Ox 100 01/25/24 11:34 Oxygen Delivery Method Room Air 01/25/24 11:34 BMI result Body Mass Index 31.2 Tobacco/Smoking Status: Tobacco use Status Tobacco use date assessed 01/25/24 01/25/24 11:47 Patient Tobacco Use Status Never used Tobacco 01/25/24 11:40 e-Cigarette/Vaping Use Never Used 01/25/24 11:40 Thrive Assessment: Date of Thrive Assessment Date Thrive assessed 02/18/23 01/25/24 11:40 Results AMB Hemoglobin A1c AMB Hemoglobin A1c 5.8 % Last Edit by Cecilia Blackmon CMA on 01/25/24 12:00 Assessment and Plan Assessment & Plan (1) Essential hypertension: Code(s): I10 - Essential (primary) hypertension Plan: Blood?pressure?is?well?controlled.??Goal?is?less?than?130/80 - history?of?aortic?stenosis Continue?current?medication?regimen (2) Pre-diabetes: Code(s): R73.03 - Prediabetes Plan: A1c?5.8%;?pre?diabetes?range Continue?diet?lower?in?sugars?and?starches Work?on?exercise?and?weight?loss Orders: Orders AMB Hemoglobin A1c Today Z13.9 - Encounter for screening, unspecified Lipid Panel Today Z00.00 - Encounter for general adult medical examination without abnormal findings TSH reflex Free T4 Today Z00.00 - Encounter for general adult medical examination without abnormal findings UA and rflx microscopic Today Z00.00 - Encounter for general adult medical examination without abnormal findings Comprehensive [place]. Panel Fast Today Z00.00 - Encounter for general adult medical examination without abnormal findings Complete Blood Count Auto Diff Today Z00.00 - Encounter for general adult medical examination without abnormal findings Microalbumin, Random (w Creat) Today I10 - Essential (primary) hypertension Medications: Refilled betamethasone, augmented 0.05 % (Diprolene (augmented)) 1 appl topical DAILY 30 days 60 grams 3RF Coding Level of Care Code Est Pt Level 3 (77308) Diagnoses Essential hypertension I10 Pre-diabetes R73.03
== END 2024-01-25 12:08 | disposition home or self-care (01) ==
PROVIDERS: PCP Family Medicine; Visit Provider Family Medicine
DX: I10 Essential (primary) hypertension (principal); R73.03 Prediabetes
CPT/HCPCS: 83036; 99213

== ENCOUNTER 2024-04-07 12:04 | Outpatient (AMB) | payer BC, SELFPAY ==
--- NOTE | 2024-04-07 12:27 | MHC.OFFVIS ---
Vital Signs 04/07/24 12:30 Height 5 ft 1 in Weight 163 lb BMI 30.8 BP 113/57 L Blood Pressure Location Lt brachial Position Sitting Pulse 69 Intake Visit Reasons: screening for malignant neoplasm of colon Intake Note: Patient new consult for 2nd pre colonoscopy screening. Patient denies any GI issues. 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 She was last seen by us greater than 3 years ago and at that time she had a sessile serrated adenoma. PMX First-degree heart block Pre diabetes Hypertension Nonrheumatic aortic stenosis High cholesterol Eczema * SURGICAL HISTORY COLONOSCOPY -2020 History of breast lump/mass excision section * ALLERGIES: NKDA * [place] LABS: SINCE 04/2023 TODAY'S VISIT She is here today for her 3 year follow-up after having a sessile serrated adenoma in 2020. She had a hard time with the PEG prep last time r/t nausea, it seems she may be covered for a lower volume of Clenpiq so I will order this and we will go to Miralax if not. She denies any bowel or upper GI problems. She has had post op N/V after some procedures. She did well the past procecdure with propofol. She denies any cardiac or respiratory problems. There is no known FXH Of crc or polyps. PFSH Medical History Mitral regurgitation Hx of cardiac murmur Elevated cholesterol HTN (hypertension) Screening for cervical cancer Breast cancer screening by mammogram Annual physical exam Surgical History H/O colonoscopy History of breast lump/mass excision Hx of section Family History Father Lymphoma Diabetes Heart disease Mother Heart attack Maternal Uncle Substance abuse in family Maternal Aunt Substance abuse in family Brother Mental health disorder Social History Housing: House Alcohol intake: current Alcohol intake frequency: a few times a week Patient Tobacco Use Status: Never used Tobacco e-Cigarette/Vaping Use: Never Used Second Hand Smoke Exposure: No service: No Current occupational status: employed Current occupational exposures/hazards: No Cognitive needs: No Hearing needs: No Vision needs: No Review of Systems Const Denies fatigue, Denies fever(s), Denies night sweats, Denies poor appetite and Denies weight loss Eyes Details: glasses Reports requires corrective lenses ENT Reports Normal hearing present, Denies dysphagia, Reports dizziness (resolved), Denies odynophagia, Denies throat swelling and Denies tongue swelling Card Reports no additional complaints Resp Reports no additional complaints GI Details: Denies abdominal pain, Denies melena, Denies bloating, Denies hematochezia, Denies constipation, Denies GI cramping, Denies dysphagia, Denies excessive flatus, Denies early satiety, Denies heartburn, Denies diarrhea, Denies nausea, Denies odynophagia, Denies vomiting and Denies hematemesis Skin/Breast Denies pruritus, Denies lesions, Denies rash and Denies jaundice Neuro Reports Normal hearing present, Denies Abnormal speech present and Reports dizziness (resolved) Endo Denies fatigue Aller/Immun Denies throat swelling and Denies tongue swelling Physical Exam Vital Signs: Last Vital Signs Pulse 69 04/07/24 12:30 BP 113/57 L 04/07/24 12:30 BMI result Body Mass Index 30.8 Const General: cooperative, no acute distress, well developed and well groomed Nutritional Appearance: well nourished, obese and overweight Orientation/consciousness: oriented to person, oriented to place and oriented to time Limitations: No language barrier, ambulation with cane, ambulation with walker and wheelchair HEENT Head: Yes normocephalic and Yes atraumatic Eyes General: appearance normal, both eyes and all related structures Pupils: Equal, round and reactive pupils present Neck Neck: Yes normal visual inspection and Yes no lymphadenopathy Thyroid: Thyroid normal Resp Effort & Inspection: normal respiratory effort and able to speak in complete sentences Auscultation: clear to auscultation bilaterally Cardio Rate: regular rate Rhythm: regular rhythm Heart sounds: Murmur heart sound present systolic (craig systolic) blowing Peripheral pulses: radial pulses present and posterior tibial pulses present GI Inspection: No distended and No Abdominal panniculus present Palpation (GI): Soft to palpation, nontender, no guarding, not rigid and No hepatosplenomegaly present Percussion: Yes normal to percussion Auscultation: normal bowel sounds Rectal Exam - Female: deferred Skin General skin exam: no rashes or lesions noted, turgor normal, skin not dry, no jaundice, No spider nevi and no striae Rashes: no rashes Nails: normal Neuro General: oriented to person, oriented to place and oriented to time Cranial nerves: Yes Equal, round and reactive pupils present and Yes Normal hearing present Speech: No Abnormal speech present Extrem General: Yes normal to inspection, No clubbing, No cyanosis and No edema Psych Appearance: grossly normal and well kempt Mental Status: mental status grossly normal Speech and movement: Normal speech and movement present Affect: normal affect Attitude: cooperative Thought process: Normal thought process present and not confabulating Thought content: Normal thought content present Insight: Good insight present (Psych) Judgement: Good judgement present (Psych) Assessment & Plan Assessment & Plan (1) Serrated adenoma of colon: Comment: 2020 scope repeat in 3 years Code(s): D12.6 - Benign neoplasm of colon, unspecified Category: Medical Plan She is here today for her 3 year follow-up after having a sessile serrated adenoma in 2020. She had a hard time with the PEG prep last time r/t nausea, it seems she may be covered for a lower volume of Clenpiq so I will order this and we will go to Miralax if not. She denies any bowel or upper GI problems. She has had post op N/V after some procedures. She did well the past procecdure with propofol. She denies any cardiac or respiratory problems. There is no known FXH Of crc or polyps. Orders: Orders Comprehensive [place]. Panel Fast 01/25/24 Z00.00 - Encounter for general adult medical examination without abnormal findings Complete Blood Count Auto Diff 01/25/24 Z00.00 - Encounter for general adult medical examination without abnormal findings Colonoscopy - GI Use Only Today D12.6 - Benign neoplasm of colon, unspecified Medications: New sod picosulf-mag ox-citric ac 10 mg-3.5 gram- 12 gram/160 mL (Clenpiq) take first dose at 5-9PM evening before colonoscopy; 2nd dose the next day approximately 5 hrs before colonoscopy 160 mL PO DAILY 320 mL 0RF Coding Level of Care Code New Pt Level 3 (42665) Diagnoses Serrated adenoma of colon D12.6
[2024-04-07 12:30] VITALS: BP 113/57; PULSE 69; BMI 30.8
== END 2024-04-07 12:52 | disposition home or self-care (01) ==
PROVIDERS: PCP Family Medicine; Visit Provider Nurse Practitioner
DX: D12.6 Benign neoplasm of colon, unspecified (principal)
CPT/HCPCS: 99203

== ENCOUNTER → 2024-04-07 12:04 | Outpatient (BNVA) | payer BC, SELFPAY | PROVIDERS: PCP Family Medicine; Visit Provider Nurse Practitioner ==

== ENCOUNTER 2024-04-22 09:41 | Outpatient (REF) | payer BC, MEDICARE, SELFPAY ==
[2024-04-22 11:08] LABS: MANUAL DIFF FLAG NO
[2024-04-22 11:17] LABS: Basophils Percent Auto 0.7 % (0-2); Eosinophils Absolute Auto 0.3 X10*3/uL (0.0-0.4); Eosinophils Percent Auto 4.9 % (0-4); Hemoglobin 13.2 g/dl (12.0-16.0); Imm Gran Abs Auto 0.01 X10*3/uL (0.00-0.03); Imm Gran Pct Auto 0.2 % (0.0-0.4); Lymphocytes Absolute Auto 2.5 X10*3/uL (1.2-4.9); Lymphocytes Percent Auto 42.5 % (20-40); Mean Corpuscular HGB Conc 33.8 g/dl (31.0-35.0); Mean Corpuscular Hemoglobin 29.2 pg (27.0-33.0); Mean Corpuscular Volume 86.3 fL (80.0-98.0); Mean Platelet Volume 10.5 fL (9.4-12.3); Monocytes Absolute Auto 0.4 X10*3/uL (0.1-1.2); Monocytes Percent Auto 7.2 % (2-11); Neutrophils Absolute Auto 2.6 x10*3/uL (2.0-8.3); Neutrophils Percent Auto 44.5 % (45-73); Platelet Count 329 X10*3/uL (160-400); Red Blood Count 4.52 X10*6/uL (4.20-5.50); Red Cell Distribution Width 13.4 % (11.0-16.0); White Blood Count 5.9 X10*3/uL (4.8-10.8)
[2024-04-22 11:57] LABS: Alanine Aminotransferase 25 U/L (0-31); Albumin Level 4.4 g/dL (3.5-5.0); Alkaline Phosphatase 69 U/L (39-117); Anion Gap 14 (12-20); Aspartate Amino Transferase 22 U/L (5-31); Bilirubin Total 0.4 mg/dL (0.0-1.0); Blood Urea Nitrogen 17 mg/dL (9-16); Calcium 9.8 mg/dL (8.4-10.2); Carbon Dioxide 26 mmol/L (22-29); Chloride 104 mmol/L (96-108); Cholesterol 181 mg/dL (<200); Estimated Glomerular Filt Rate > 60; Glucose Fasting 91 mg/dL (60-99); HDL Cholesterol 66 mg/dL (>40); LDL Cholesterol Calculated 89 mg/dL (<100); Potassium 4.4 mmol/L (3.3-5.1); Sodium 140 mmol/L (135-145); Total Protein 7.6 g/dL (6.5-8.0); Triglycerides 133 mg/dL (<150)
[2024-04-22 12:14] LABS: TSH reflex Free T4 1.42 uIU/mL (0.32-4.0)
[2024-04-22 14:25] LABS: Appearance Urine Clear; Color Urine Yellow; Glucose Urine UA Negative (Negative); Leukocyte Esterase Urine Moderate (2+) (Negative); Nitrite Urine Negative (Negative); PH 5.5 (5.0-9.0); UMIC TRIGGER UA YES; Urine Blood Negative (Negative); Urine Ketones Negative (Negative); Urine Protein Negative (Neg-Trace)
[2024-04-22 14:30] LABS: Bacteria Urine 1+ (None Seen); Hyaline Casts Urine 0-2 /LPF (0-2); RBC Urine 0-2 /HPF (0-2)
[2024-04-22 15:10] LABS: Microalbumin Urine < 5.0 mg/L
== END 2024-04-22 09:42 | disposition home or self-care (01) ==
LOC: HO.WFDLDS 09:41
PROVIDERS: Referring Provider Nurse Practitioner; Visit Provider Family Medicine
DX: Z00.00 Encounter for general adult medical examination without abnormal findings (principal); I10 Essential (primary) hypertension
CPT/HCPCS: 36415; 80053; 80061; 81001; 82043; 82570; 84443; 85025

== ENCOUNTER 2024-05-02 10:55 | Outpatient (AMB) | payer BC, SELFPAY ==
--- NOTE | 2024-05-02 11:13 | A.OFFPC_ITS ---
Vital Signs 05/02/24 11:20 Height 5 ft Weight 163 lb BMI 31.8 BP 120/60 Blood Pressure Location Rt brachial Position Sitting Respiration 16 Pulse 64 Pulse Source Pulse Oximeter Temp 97.8 F Temp Source Tympanic Pulse Oximetry (%) 97 Oxygen Delivery Method Room Air Intake Visit Reasons: CPE with f/u labs and health maint. Intake Note: CPE Allergies No Known Allergies Allergy (Verified 05/02/24 11:14) Medication List - Last Reconciled 05/02/24 by Víctor Cat MD amlodipine 5 mg PO DAILY 90 days aspirin (Adult Low Dose Aspirin) 81 mg PO DAILY betamethasone, augmented 0.05 % (Diprolene (augmented)) 1 appl topical DAILY 30 days clobetasol 0.05% grams topical Q OTHER DAY docusate sodium 100 mg PO .every other day estradiol 0.01%(0.1mg/gram) grams vaginal lisinopril 20 mg PO DAILY 90 days multivitamin 1 tab PO DAILY simvastatin 20 mg PO BEDTIME sod picosulf-mag ox-citric ac 10 mg-3.5 gram- 12 gram/160 mL (Clenpiq) 160 mL PO DAILY 2 doses Tobacco use date assessed: 05/02/24 Fall risk assessment: No Falls in past year Last assessed Fall Risk: 05/02/24 Dental Screening Dental Screen Date: 05/02/24 Did you have a dental visit in the last 12 months?: Yes Did you have a dental problem in the last 6 months where you did not have access to dental care?: Yes HPI CPE with f/u labs and health maint. HPI Details 64 y/o female presents for a CPE with f/ u labs and health maintenance. Labs drawn 04/22/24. Reviewed labs with pt. Triglycerides 133. TC 181. LDL 89. HDL 66. 1+ urine bacteria seen. Blood pressure today 120/60. She is on lisinopril 20mg, amlodipine 5mg daily. Has complaints of vertigo. She reports vertigo normally intermittent and brief but last Thursday had experienced dizziness /nausea and felt she had to take meclizine otc. A1c today 05/02/24 is 5.7%. HPI Comments History of Present Illness Details Documentation assistance for Víctor Cat MD, was provided by Finn Sharp, Patient Insurance Clerk on 05/02/2024 at 11:26 AM EST. I, Dr. Cat, have read, observed, and verified documentation. [facility] Medical History Mitral regurgitation Hx of cardiac murmur Elevated cholesterol HTN (hypertension) Screening for cervical cancer Breast cancer screening by mammogram Annual physical exam Surgical History H/O colonoscopy History of breast lump/mass excision Hx of section Family History Father Lymphoma Diabetes Heart disease Mother Heart attack Maternal Uncle Substance abuse in family Maternal Aunt Substance abuse in family Brother Mental health disorder Social History (Updated 05/02/24 @ 11:17 by Param Roldan) Housing: House Alcohol intake: current Alcohol intake frequency: a few times a week Patient Tobacco Use Status: Never used Tobacco e-Cigarette/Vaping Use: Never Used Second Hand Smoke Exposure: No service: No Current occupational status: employed Current occupational exposures/hazards: No Cognitive needs: No Hearing needs: No Vision needs: No Questionnaire PHQ-9 Over the last 2 weeks, how often have you been bothered by any of the following problems? 1. Little interest or pleasure in doing things: not at all 2. Feeling down, depressed, or hopeless: not at all 3. Trouble falling or staying asleep, or sleeping too much: several days 4. Feeling tired or having little energy: several days 5. Poor appetite or overeating: several days 6. Feeling bad about yourself - or that you are a failure or have let yourself or your family down: not at all 7. Trouble concentrating on things, such as reading the newspaper or watching television: several days 8. Moving or speaking so slowly that other people could have noticed. Or the opposite - being so fidgety or restless that you have been moving around a lot more than usual: not at all 9. Thoughts that you would be better off or of hurting yourself in some way: not at all Total score: 4 Depression Screening Interpretation: Negative Depression Screening Done: Yes 18536 - PHQ-9 Billing: Yes Source: Developed by Drs. Otto Mckinnon, Cassandra Hart, Larry Reis and colleagues, with an educational edith from [employer]. Thrive Questionnaire Date Thrive assessed: 05/02/24 I am a: Patient What is your living situation today?: I have a steady place to live Within the past 12 months, did the food you bought not last and you didn't have the money to get more?: Never true Within the past 12 months, did you worry whether your food would run out before you got money to buy more?: Never true Do you have trouble paying for medicines?: No Do you have trouble getting transportation to medical appointments?: No Do you have trouble paying your heating and electricity bill?: No Do you have trouble taking care of your child, family member or friend?: No Do you have trouble with day-to-day activities such as bathing, preparing meals, shopping, managing finances, etc.?: No Are you currently unemployed and looking for a job?: No Are you interested in more education?: No Please select the resources that you would like help with: None Currently or been in a relationship where the following occur: No concerns reported THRIVE Score: 0 AUDIT C Alcohol Use Questionnaire (AUDIT-C) 1. How often do you have a drink containing alcohol?: 2-3 times a week 2. How many drinks containing alcohol do you have on a typical day when you are drinking?: 1 or 2 3. How often do you have six or more drinks on one occasion?: Never Total Score: 3 Score Reviewed/Action Taken: Yes FAHAD-7 AMB Questionnaire FAHAD-7 Date FAHAD - 7 assessed: 05/02/24 Feeling nervous, anxious, or on edge: 1 = Several days Not being able to stop or control worryin = Not at all Worrying too much about different things: 1 = Several days Trouble relaxin = Several days Being so restless that it is hard to sit still: 0 = Not at all Becoming easily annoyed or irritable: 1 = Several days Feeling afraid as if something awful might happen: 0 = Not at all Total FAHAD-7 score (0-4 normal; 5-9 mild; 10-14 moderate; 15-21 severe): 4 Source: Developed by Drs. Otto Mckinnon, Larry Ramirez and colleagues, with an educational edith from [employer]. FAHAD-7 Assessment Billing FAHAD-7 Assessment Tool: FAHAD-7 Assessment 37085 Review of Systems Const Denies chills, Denies fatigue, Denies fever(s), Denies headache(s) and Denies weakness Eyes Denies change in vision ENT Denies dizziness, Denies headache(s), Denies hearing loss, Denies nasal congestion, Denies sinus pain, Denies sinus pressure and Denies sore throat Card Denies chest pain, Denies lightheadedness, Denies dyspnea and Denies other (palpitations) Resp Denies cough, Denies dyspnea and Denies wheezing GI Denies abdominal pain, Denies melena, Denies hematochezia, Denies change in bowel habits, Denies dyspepsia and Denies nausea Denies hematuria and Denies dysuria Musc Denies abnormal gait, Denies myalgias, Denies arthralgias, Denies numbness and Denies tingling Skin/Breast Denies rash, Denies unusual bruising and Denies wounds Neuro Denies abnormal gait, Denies dizziness, Denies headache(s), Denies memory loss, Denies numbness, Denies Sensory deficit (Neuro), Denies tingling and Denies weakness Psych Denies anxiety, Denies depression and Denies memory loss Endo Denies cold intolerance, Denies fatigue, Denies heat intolerance, Denies polydipsia and Denies polyuria Junior/Lymph Denies easy bleeding and Denies easy bruising Aller/Immun Denies wheezing Physical exam (Primary Care) Tobacco/Smoking Status: Tobacco use Status Tobacco use date assessed 01/25/24 05/02/24 11:14 Patient Tobacco Use Status Never used Tobacco 05/02/24 11:17 e-Cigarette/Vaping Use Never Used 05/02/24 11:17 Depression Screening Interpretation: Negative Thrive Assessment: Date of Thrive Assessment Date Thrive assessed 02/18/23 05/02/24 11:14 Currently or been in a relationship where the following occur: No concerns reported Const General: no acute distress, well developed, alert and awake Nutritional Appearance: well nourished Orientation/consciousness: patient oriented x3 HENMT Head: Yes normocephalic and Yes atraumatic Ears: hearing grossly normal bilaterally and TM's normal bilaterally General nose exam: Normal external nose present and Normal nares present Mouth: Normal oral and palatal mucosa present and moist mucous membranes Teeth and gingiva: dentition normal Throat: Yes posterior oropharynx normal Eyes General: appearance normal, both eyes and all related structures Pupils: Equal, round and reactive pupils present and Pupil accommodation reflex normal EOM: EOMs intact bilaterally Neck Neck: Yes normal visual inspection, Yes no lymphadenopathy and Yes trachea midline Thyroid: Thyroid normal Carotids: no bruits Lymphatic: no lymphadenopathy noted Chest Chest palpation & inspection: normal inspection of the chest Resp Effort & Inspection: normal respiratory effort Auscultation: clear to auscultation bilaterally Cardio Rate: regular rate Rhythm: regular rhythm Heart sounds: S1 normal heart sound present, S2 normal heart sound present, no gallops, Murmur heart sound present and no rubs Bruits: no abdominal aortic bruits and no carotid bruits GI Palpation (GI): No Abdominal aortic bruit present, Soft to palpation, nontender, No hepatosplenomegaly present and No Rebound tenderness present Auscultation: normal bowel sounds General: Yes no CVA tenderness Back/Spine/Pelvis Back: no CVA tenderness Cervical Spine: cervical ROM normal and No Cervical spine tenderness Thoracic/Lumbar Spine: thoraco-lumbar ROM normal, No pain with thoraco-lumbar ROM, No thoracic spinal tenderness and No lumbar spinal tenderness Skin Lesions: no lesions Rashes: no rashes Trauma: no lacerations or abrasions Wounds: no wounds Nails: normal Neuro General: patient oriented x3 Cranial nerves: Yes Equal, round and reactive pupils present Cognition (Neuro): normal cognition Gait exam (Neuro): Normal gait present Motor exam (neuro): 5/5 motor strength present throughout Sensory Exam: No Sensory deficit (Neuro) Deep tendon reflexes (DTR's): Right patellar reflex intensity grade: 2+ and Left patellar reflex intensity grade: 2+ Extrem General: Yes normal to inspection and No edema Psych Appearance: grossly normal Affect: normal affect Attitude: cooperative Thought process: Normal thought process present Assessment and Plan Assessment & Plan (1) Adult general medical exam: Code(s): Z00.00 - Encounter for general adult medical examination without abnormal findings Plan: 64-year-old?female?presents?for?complete?physical?exam Encouraged?healthy?diet?with?active?lifestyle?and?plenty?of?exercise (2) Vertigo: Code(s): R42 - Dizziness and giddiness Plan: Recurrent?episodes?of?vertigo Followed?by?cardiology?and?recent?EKG?and?echocardiogram?are?normal This?does?not?appear?to?be?cardiac?in?origin Will?refer?her?to?physical?therapy?for?vestibular?rehab She?can?use?meclizine?and?also?trial?fluticasone?nasal?spray (3) Essential hypertension: Code(s): I10 - Essential (primary) hypertension Plan: Blood?pressure?is?controlled.??Goal?is?less?than?130/80 Continue?current?medication (4) Aortic stenosis: Code(s): I35.0 - Nonrheumatic aortic (valve) stenosis Plan: As?above,?blood?pressure?is?controlled. Followed?by?cardiology.??Stable. Has?follow-up?with?Cardiology?next?year (5) Pre-diabetes: Code(s): R73.03 - Prediabetes Plan: A1c?today:??5.7% Encouraged?diet?low?in?sugars?and?starches (6) Hyperlipidemia: Code(s): E78.5 - Hyperlipidemia, unspecified Plan: Cholesterol?panel?is?all?within?normal?range?on?simvastatin Controlled Continue?simvastatin (7) Screening for cervical cancer: Code(s): Z12.4 - Encounter for screening for malignant neoplasm of cervix Plan: Followed?at?[facility]?industrial designer Pap?smear?in?09/26/2023 (8) Screening for colon cancer: Code(s): Z12.11 - Encounter for screening for malignant neoplasm of colon Plan: Now[facility]followed[place]by[place] Has?colonoscopy?scheduled?for?September (9) Screening for osteoporosis: Code(s): Z13.820 - Encounter for screening for osteoporosis Plan: Due?for?bone?density?test-ordered (10) Breast cancer screening by mammogram: Code(s): Z12.31 - Encounter for screening mammogram for malignant neoplasm of breast Plan: Mammogram?in?early?2023?was?negative?for?malignancies Up-to-date Continue?annual?screening (11) Immunization counseling: Code(s): Z71.85 - Encounter for immunization safety counseling Plan: She?is?due?for?pneumonia?shot Also?due?for?shingles?and?can?get?her?flu?shot?in?May/June Recently?had?RSV?immunization Orders: Orders XR DEXA axial skeleton Today M81.0 - Age-related osteoporosis without current pathological fracture PT Evaluation and Treatment Today R42 - Dizziness and giddiness AMB Hemoglobin A1c Today Z13.9 - Encounter for screening, unspecified Medications: New meclizine 50 mg PO DAILY 90 days PRN 30 tabs 3RF motion sickness fluticasone propionate 50 mcg/actuation (Flonase Allergy Relief) administer into each nostril 1 spray intranasal Q12H 30 days 16 grams 2RF Coding Level of Care Code Est Pt Level 3 (76236) Est Pt Prev Care >65y(09989) Diagnoses Adult general medical exam Z00.00 Vertigo R42 Essential hypertension I10 Aortic stenosis I35.0 Pre-diabetes R73.03 Hyperlipidemia E78.5 Screening for cervical cancer Z12.4 Screening for colon cancer Z12.11 Screening for osteoporosis Z13.820 Breast cancer screening by mammogram Z12.31 Immunization counseling Z71.85 Additional Codes FAHAD-7 Assessment Billing - FAHAD-7 Assessment Tool: FAHAD-7 Assessment 69367 ([id number])
[2024-05-02 11:20] VITALS: BP 120/60; PULSE 64; RESP 16; TEMP 36.6; O2SAT 97; BMI 31.8
== END 2024-05-02 12:04 | disposition home or self-care (01) ==
PROVIDERS: PCP Family Medicine; Visit Provider Family Medicine
DX: Z00.00 Encounter for general adult medical examination without abnormal findings (principal); R42 Dizziness and giddiness; I10 Essential (primary) hypertension; I35.0 Nonrheumatic aortic (valve) stenosis; R73.03 Prediabetes; E78.5 Hyperlipidemia, unspecified; Z12.11 Encounter for screening for malignant neoplasm of colon; Z13.820 Encounter for screening for osteoporosis; Z12.31 Encounter for screening mammogram for malignant neoplasm of breast; Z71.85 Encounter for immunization safety counseling
CPT/HCPCS: 83036; 99213; 99397

== ENCOUNTER 2024-05-23 07:56 | Outpatient (RCR) | payer BC, SELFPAY ==
[2024-05-23 08:07] VITALS: BP 126/57; PULSE 69
--- NOTE | 2024-05-23 09:35 | MHC.PT.EP ---
[facility] [place] Office [place] Office [place] Office [address] [phone] F: [phone] F: [phone] F: [phone] F: [phone] Physical Therapy Plan of Care Date of Evaluation: 05/23/24 Date of Surgery: NA Diagnosis: Dizziness and giddiness Vertigo Assessment: Zoya is a 64 year old female who is referred to PT for dizziness and giddiness . She reports of having sudden onset of intense dizziness which lasted for 3 days about 2 months back. Her symptoms resolved spontaneously and re-appeared about a month back and this lasted for a few hours. She describes them as room spinning and it lasted for hours. Today on PT examination she denied having any dizziness, she presented with intact saccades, smooth pursuit, visual tracking, negative VBI, negative head thrust, DVA- 1 line, negative for BPPV in B smart pikes and B roll test and good static and dynamic balance. She lives with her and is independent with all ADLS. 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 She does not present with any symptoms suggestive of vestibular dysfunction. No PT indicated at this time. She was advised to return to PT in case of return of symptoms. Frequency and Duration: The patient will be seen Short Term Goals: Elevator Conductor Goals: Treatment Plan: Modalities to reduce pain, spasms and effusion. Manual therapy to restore motion and function. Therapeutic exercise to improve strength and flexibility. Neuromuscular re-education for posture and balance. Therapeutic activities to return to functional activities of daily living. Electronically signed by: Dasha Kern PT DPT Please sign and return to therapist. Thank you for your referral.
--- NOTE | 2024-06-27 14:42 | MHC.PT.DC ---
[facility] [place] Office [place] Office [place] Office [address] [place] [address] [facility] [phone] F: [phone] F: [phone] F: [phone] F: [phone] Physical Therapy Discharge Report Diagnosis: Dizziness and giddiness Vertigo Date of Surgery: NA Date of Evaluation: 05/23/24 Date of Discharge: 06/27/24 Treatments to Date: 1 Cancellations to Date: 0 No Shows to Date: 0 Discharge Status: Discharge Summary: Zoya did not present with any symptoms suggestive of vestibular dysfunction. No PT indicated at this time. Electronically signed by: Dasha Kern PT DPT Please sign and return to therapist. Thank you for your referral.
== END 2024-06-27 14:43 | disposition home or self-care (01) ==
LOC: HO.PT 07:56
PROVIDERS: PCP Family Medicine; Visit Provider Family Medicine
DX: R42 Dizziness and giddiness (principal)
CPT/HCPCS: 97112; 97161

== ENCOUNTER 2024-07-19 08:58 | Outpatient (REF) | payer BC, SELFPAY ==
--- NOTE | ~2024-07-19 | MM_ITS ---
EXAMINATION: BONE DENSITOMETRY CLINICAL INDICATION: Age-related osteoporosis without current pathological fracture. COMPARISON: Baseline BD dated 09/13/2019. TECHNIQUE: Using a [employer] DXA System (software version: 13.1) manufactured by [employer], dual-energy x-ray absorptiometry was performed of the lumbar spine and left hip. The images are of good technical quality. Summary results are attached. FINDINGS: LEFT FEMUR, NECK: Current: BMD 0.987 g/cm2, Z-score 0.9, T-score -0.4, normal. Baseline: BMD 0.950 g/cm2. LEFT FEMUR, TOTAL: Current: BMD 1.001 g/cm2, Z-score 0.9, T-score -0.1, normal, 0.8% decrease from baseline (<5% change is not significant). Baseline: BMD 1.009 g/cm2. AP SPINE L1-L4 (excluding L3): The data of L1-L4 has been changed to exclude the L3 vertebral body, because at this level may cause overestimation of lumbar spine density. Current: BMD 1.235 g/cm2, Z-score 1.8, T-score 0.5, normal, 1.6% decrease from baseline (<5% change is not significant). Baseline: BMD 1.255 g/cm2. IDENTIFIED RISK FACTORS: Menopause. HISTORY OF FRACTURE: None listed. MEDICATIONS: Calcium/multivitamin. MM/XR DEXA axial skeleton IMPRESSION: 1. DIAGNOSIS: Normal bone density based on the lowest T-score value of -0.4 in the femoral neck applying World Health Organization criteria. 2. 10-YEAR FRACTURE RISK PREDICTION, FRAX: According to the guidelines, FRAX calculation should only be performed on patients in the osteopenia bone density category. Therefore, FRAX was not performed on this patient. 3. Treatment Recommendations: NOF guidelines recommend consideration for treatment in postmenopausal women and men age 50 and older presenting with the following: -A hip or vertebral (clinical or morphometric) fracture. -T-score less than or equal to -2.5 at the femoral neck or spine after appropriate evaluation to exclude secondary causes. -Low bone mass at the hip or spine and a 10-year fracture probability by FRAX of greater than or equal to 3% for hip fracture or greater than or equal to 20% for major osteoporotic fracture based on the [place] adapted WHO algorithm. 4. Other Recommendations: All treatment decisions require clinical judgment and consideration of individual patient factors, including patient preferences, comorbidities, previous drug use, risk factors not captured in the FRAX model (e.g. frailty, falls, vitamin D deficiency, increased bone turnover, interval significant decline in bone density) and possible under or overestimation of fracture risk by FRAX. FUTURE SCAN RECOMMENDATION: People with diagnosed cases of osteoporosis or at high risk for fracture should have regular bone mineral density tests. For patients eligible for Medicare, routine testing is allowed once every 2 years. The testing frequency can be increased to one year for patients who have rapidly progressing disease, those who are receiving or discontinuing medical therapy to restore bone mass, or have additional risk factors. Electronically signed by: Edel Chavez MD 07/19/2024 01:08 PM [facility]
== END 2024-07-19 08:59 | disposition home or self-care (01) ==
LOC: HO.MAMMO 08:58
PROVIDERS: PCP Family Medicine; Visit Provider Family Medicine
DX: M81.0 Age-related osteoporosis without current pathological fracture (principal)
CPT/HCPCS: 77080

== ENCOUNTER 2024-09-23 11:51 | Outpatient (AMB) | payer BC, SELFPAY ==
--- NOTE | 2024-09-23 12:36 | A.OFFPC_ITS ---
Vital Signs 09/23/24 12:38 Height 5 ft Weight 165 lb BMI 32.2 BP 120/60 Blood Pressure Location Rt brachial Position Sitting Respiration 14 Pulse 64 Pulse Source Pulse Oximeter Pulse Oximetry (%) 97 Oxygen Delivery Method Room Air Intake Visit Reasons: f/u hypertension, pre-diabetes Intake Note: HTN f/u and pre-DM Allergies No Known Allergies Allergy (Verified 09/23/24 12:37) Medication List - Last Reconciled 09/23/24 by Víctor Cat MD amlodipine 5 mg PO DAILY 90 days aspirin (Adult Low Dose Aspirin) 81 mg PO DAILY betamethasone, augmented 0.05 % (Diprolene (augmented)) 1 appl topical DAILY 30 days clobetasol 0.05% grams topical Q OTHER DAY docusate sodium 100 mg PO .every other day estradiol 0.01%(0.1mg/gram) grams vaginal fluticasone propionate 50 mcg/actuation (Flonase Allergy Relief) 1 spray intranasal Q12H 30 days lisinopril 20 mg PO DAILY 90 days meclizine 50 mg PO DAILY PRN 90 days multivitamin 1 tab PO DAILY simvastatin 20 mg PO BEDTIME sod picosulf-mag ox-citric ac 10 mg-3.5 gram- 12 gram/160 mL (Clenpiq) 160 mL PO DAILY 2 doses Tobacco use date assessed: 05/02/24 Dental Screening Dental Screen Date: 05/02/24 HPI f/u hypertension, pre-diabetes HPI Details 64 y/o female presents to f/u hypertensi on, preDM. A1c 5.4%. BP today 120/60, 64p. He is on amlodipine 5mg, lisinopril 20 mg daily. Recent bone density test was normal. [facility] Medical History Mitral regurgitation Hx of cardiac murmur Elevated cholesterol HTN (hypertension) Screening for cervical cancer Breast cancer screening by mammogram Annual physical exam Surgical History H/O colonoscopy History of breast lump/mass excision Hx of section Family History Father Lymphoma Diabetes Heart disease Mother Heart attack Maternal Uncle Substance abuse in family Maternal Aunt Substance abuse in family Brother Mental health disorder Social History (Updated 05/02/24 @ 11:17 by Param [facility] Housing: House Alcohol intake: current Alcohol intake frequency: a few times a week Patient Tobacco Use Status: Never used Tobacco e-Cigarette/Vaping Use: Never Used Second Hand Smoke Exposure: No service: No Current occupational status: employed Current occupational exposures/hazards: No Cognitive needs: No Hearing needs: No Vision needs: No Questionnaire PHQ-9 Over the last 2 weeks, how often have you been bothered by any of the following problems? 1. Little interest or pleasure in doing things: not at all 2. Feeling down, depressed, or hopeless: not at all 3. Trouble falling or staying asleep, or sleeping too much: more than half the days 4. Feeling tired or having little energy: several days 5. Poor appetite or overeating: not at all 6. Feeling bad about yourself - or that you are a failure or have let yourself or your family down: not at all 7. Trouble concentrating on things, such as reading the newspaper or watching t elevision: not at all 8. Moving or speaking so slowly that other people could have noticed. Or the opposite - being so fidgety or restless that you have been moving around a lot more than usual: not at all 9. Thoughts that you would be better off or of hurting yourself in some way: not at all Total score: 3 Source: Developed by Drs. Otto Mckinnon, Cassandra Hart, Larry Reis and colleagues, with an educational edith from [employer]. Thrive Questionnaire Date Thrive assessed: 05/02/24 I am a: Patient What is your living situation today?: I have a steady place to live Within the past 12 months, did the food you bought not last and you didn't have the money to get more?: Never true Within the past 12 months, did you worry whether your food would run out before you got money to buy more?: Never true Do you have trouble paying for medicines?: No Do you have trouble getting transportation to medical appointments?: No Do you have trouble paying your heating and electricity bill?: No Do you have trouble taking care of your child, family member or friend?: No Do you have trouble with day-to-day activities such as bathing, preparing meals, shopping, managing finances, etc.?: No Are you currently unemployed and looking for a job?: No Are you interested in more education?: No Please select the resources that you would like help with: None Currently or been in a relationship where the following occur: No concerns reported THRIVE Score: 0 AUDIT C Alcohol Use Questionnaire (AUDIT-C) 1. How often do you have a drink containing alcohol?: 2-3 times a week 2. How many drinks containing alcohol do you have on a typical day when you are drinking?: 1 or 2 3. How often do you have six or more drinks on one occasion?: Never Total Score: 3 FAHAD-7 AMB Questionnaire FAHAD-7 Date FAHAD - 7 assessed: 05/02/24 Feeling nervous, anxious, or on edge: 1 = Several days Not being able to stop or control worryin = Not at all Worrying too much about different things: 0 = Not at all Trouble relaxin = Not at all Being so restless that it is hard to sit still: 0 = Not at all Becoming easily annoyed or irritable: 0 = Not at all Feeling afraid as if something awful might happen: 0 = Not at all Total FAHAD-7 score (0-4 normal; 5-9 mild; 10-14 moderate; 15-21 severe): 1 Source: Developed by Drs. Otto Mckinnon, Cassandra Hart, Larry Reis and colleagues, with an educational edith from [employer]. Review of Systems Const Denies chills, Denies fatigue, Denies fever(s), Denies headache(s) and Denies weakness ENT Denies dizziness and Denies headache(s) Card Denies chest pain, Denies lightheadedness, Denies dyspnea and Denies other (Palpitations) Resp Denies cough, Denies dyspnea, Denies wheezing and Denies other ( shortness of breath) Musc Denies numbness and Denies tingling Neuro Denies dizziness, Denies headache(s), Denies numbness, Denies tingling, Denies paresthesias and Denies weakness Psych Denies anxiety and Denies depression Endo Denies fatigue Aller/Immun Denies wheezing Physical exam (Primary Care) Vital Signs: Last Vital Signs Pulse 64 09/23/24 12:38 Resp 14 09/23/24 12:38 BP 120/60 09/23/24 12:38 Pulse Ox 97 09/23/24 12:38 Oxygen Delivery Method Room Air 09/23/24 12:38 BMI result Body Mass Index 32.2 Tobacco/Smoking Status: Tobacco use Status Tobacco use date assessed 05/02/24 09/23/24 12:43 Patient Tobacco Use Status Never used Tobacco 09/23/24 12:43 e-Cigarette/Vaping Use Never Used 09/23/24 12:43 PHQ-9: PHQ-9 Score PHQ-9: Total score 3 09/23/24 13:18 Thrive Assessment: Date of Thrive Assessment Date Thrive assessed 05/02/24 09/23/24 12:43 Currently or been in a relationship where the following occur: No concerns reported Const General: no acute distress and well developed Nutritional Appearance: well nourished Orientation/consciousness: patient oriented x3 HENMT Head: Yes normocephalic and Yes atraumatic Eyes General: appearance normal, both eyes and all related structures Pupils: Equal, round and reactive pupils present EOM: EOMs intact bilaterally Resp Effort & Inspection: normal respiratory effort Auscultation: clear to auscultation bilaterally Cardio Rate: regular rate Rhythm: regular rhythm Heart sounds: S1 normal heart sound present, S2 normal heart sound present, no gallops, no murmurs and no rubs Neuro General: patient oriented x3 and gait normal Cranial nerves: Yes Equal, round and reactive pupils present Psych Affect: normal affect Coding Level of Care Code Est Pt Level 4 (84561) Diagnoses Essential hypertension I10 Pre-diabetes R73.03 Screening for osteoporosis Z13.820 Obesity E66.9 Assessment & Plan Assessment & Plan (1) Essential hypertension: Code(s): I10 - Essential (primary) hypertension Category: Medical Plan: Blood?pressure?is?well?controlled.??Goal?is?less?than?140/90 Continue?current?medication (2) Pre-diabetes: Code(s): R73.03 - Prediabetes Category: Medical Plan: A1c?5.4%?today. Doing?well.??Encouraged?ongoing?diet?low?in?sugars?and?starches (3) Screening for osteoporosis: Code(s): Z13.820 - Encounter for screening for osteoporosis Category: Medical Plan: Bone?density?test?was?normal Will?continue?screening?every?2?years (4) Obesity: Code(s): E66.9 - Obesity, unspecified Category: Medical Plan: We?discussed?diet?and exercise Work?on?decreasing?portion?sizes?and?work?regular?exercise.??Patient's?hands?on? starting?with?planet?[employer]itness
[2024-09-23 12:38] VITALS: BP 120/60; PULSE 64; RESP 14; O2SAT 97; BMI 32.2
== END 2024-09-23 13:31 | disposition home or self-care (01) ==
PROVIDERS: PCP Family Medicine; Visit Provider Family Medicine
DX: I10 Essential (primary) hypertension (principal); R73.03 Prediabetes; Z13.820 Encounter for screening for osteoporosis; E66.9 Obesity, unspecified; Z68.32 Body mass index [BMI] 32.0-32.9, adult

== ENCOUNTER → 2024-09-23 11:51 | Outpatient (BNVA) | payer BC, SELFPAY | PROVIDERS: PCP Family Medicine; Visit Provider Family Medicine | DX: I10 Essential (primary) hypertension (principal); R73.03 Prediabetes; E66.9 Obesity, unspecified; Z68.32 Body mass index [BMI] 32.0-32.9, adult; Z79.899 Other long term (current) drug therapy | CPT/HCPCS: 83036; 96127 ==

== ENCOUNTER 2024-09-30 10:23 | Day surgery (SDC) | payer BC, SELFPAY ==
--- NOTE | 2024-09-29 11:01 | P.CONAN_ITS ---
HPI - Anesthesia Eval Consult details Narrative: 64yo F for Colonoscopy [place] [facility] [place]. Asymptomatic and stable for 1 year [facility] Active Problems Active Problems: All Active Problems Obesity (Acute) Vertigo (Acute) First degree heart block (Acute) Immunization counseling (Acute) Laboratory tests ordered as part of a complete physical exam (CPE) (Acute) Pre-diabetes (Acute) Family history of coronary artery disease (Acute) Essential hypertension (Acute) Non-rheumatic aortic stenosis (Acute) Elevated fasting glucose (Acute) Aortic stenosis (Acute) Screening for cervical cancer (Acute) Family history of diabetes mellitus (DM) (Acute) Breast cancer screening by mammogram (Acute) Adult general medical exam (Acute) Serrated adenoma of colon (Acute) Essential hypertension (Acute) Hyperlipidemia (Acute) Screening for colon cancer (Acute) Screening for osteoporosis (Acute) Postmenopausal (Acute) Eczema of both external ears (Acute) Heart murmur (Acute) Mitral regurgitation (Acute) Past Medical History Medical History Mitral regurgitation Hx of cardiac murmur Elevated cholesterol HTN (hypertension) Screening for cervical cancer Breast cancer screening by mammogram Annual physical exam Family History Family History Father Lymphoma Diabetes Heart disease Mother Heart attack Maternal Uncle Substance abuse in family Maternal Aunt Substance abuse in family Brother Mental health disorder Family history of problems with anesthesia: No Surgical History Surgical History H/O colonoscopy History of breast lump/mass excision Hx of section History of Problems with Anesthesia: Yes (PONV) Social History Social History (Updated 05/02/24 @ 11:17 by Param Roldan [facility]) Housing: House Alcohol intake: current Alcohol intake frequency: a few times a week Patient Tobacco Use Status: Never used Tobacco e-Cigarette/Vaping Use: Never Used Second Hand Smoke Exposure: No service: No Current occupational status: employed Current occupational exposures/hazards: No Cognitive needs: No Hearing needs: No Vision needs: No Meds Allergies Allergy/AdvReac Type Severity Reaction Status Date / Time No Known Allergies Allergy Verified 09/23/24 12:37 Home Medications ?Medication ?Instructions ?Recorded ?Confirmed ?Last Taken ?Type aspirin 81 mg tablet,delayed 81 mg PO DAILY 08/21/20 09/23/24 Unknown History release (Adult Low Dose Aspirin) clobetasol 0.05 % topical ointment g topical Q OTHER DAY 08/21/20 09/23/24 Unknown History docusate sodium 100 mg capsule 100 mg PO .every other day 11/30/20 09/23/24 Unknown History multivitamin 1 tab PO DAILY 11/30/20 09/23/24 Unknown History estradiol 0.01% (0.1 mg/gram) g vaginal 07/17/22 09/23/24 Unknown History vaginal cream Exam Narrative Narrative: EKG 01/2024 Details: EKG with sinus rhythm at 67/Min; MO prolongation to 230 millisecond; normal corrected QT. ECHO 01/2024 Conclusions: - The left ventricular systolic function is normal. The calculated ejection fraction is 64% by biplane method. - There is moderate aortic valve stenosis. Possibly, bicuspid aortic valve. Assessment and Plan Assessment Anesthesia Assessment: Chart Reviewed Final Anesthetic Review Family History of Problems with Anesthesia: No History of Problems with Anesthesia: Yes (PONV)
--- NOTE | 2024-09-30 10:24 | MHC.SHP ---
Pre-Procedural Eval Section A - 24 Hr Update-Section A only Date of Service: 09/30/24 The patient is an INPATIENT: No The patient has been examined within 24 hours of the surgical procedure. The History & Physical has been completed within 30 days and I have reviewed it.: No Section B - Complete if H&P > 30 days Chief Complaint: Surveillance for colon polyps Relevant Family History (Specify if Yes): No Relevant Social History: None Present Medications: see Short Stay Collaborative assessment Medical History: Significant History (Mitral regurgitation Hx of cardiac murmur Elevated cholesterol HTN (hypertension)) History of Previous Operations: Relevant previous surgery/procedure and date(s) (H/O colonoscopy History of breast lump/mass excision Hx of section) Allergies: Allergies Allergy/AdvReac Type Severity Reaction Status Date / Time No Known Allergies Allergy Verified 09/23/24 12:37 Review of Systems Sugical H&P ROS: Negative: Constitution, Cardiovascular, Respiratory and Gastrointestinal Exam Surgical H&P Exam: Normal: Heart, Normal: Lungs, Normal: Extremities and Normal: Abdomen Plan Diagnosis/Plan: Unchanged I have reviewed the history and physical and performed a pertinent physical examination on my patient. No changes have occurred unless specified. Time Spent With Patient Time: Total time managing care of this patient today ____ minutes.
[2024-09-30 10:42] VITALS: BMI 31.0
[2024-09-30 10:57] VITALS: BP 155/67; PULSE 67; RESP 18; TEMP 36.7; O2SAT 99
--- NOTE | 2024-09-30 12:44 | HO.OPN-COLON ---
Colonoscopy Operative Note Operative Note Date of Service: 09/30/24 Narrative: COLONOSCOPY TILL CECUM WITH BIOPSIES Pre-op diagnosis: Surveillance for colon polyps. Post-op diagnosis:? Diverticulosis, hemorrhoids Endoscopist:? Ksenia Lepe MD Anesthesia:?MAC Consent: Indications for the procedure and potential complications of bleeding, perforation, reaction to medications and missed diagnosis were discussed with the patient and informed consent was obtained. Instrument: Olympus PCF H 190 L variable stiffness pediatric colonoscope Monitoring: Vital signs and clinical assessment, intermittent blood pressure monitoring, continuous EKG monitoring, Pulse oximetry and Carbon Dioxide monitoring were done throughout the procedure. Please see anesthesia flowsheet. Colon withdrawl time was 14 minutes. Procedure: The patient was placed in the left lateral decubitis position and pre-procedure medications were administered. After a digital rectal examination of the ano-rectum, the video colonoscope was inserted into the rectum and advanced through the colon to the cecum. The colonoscope was slowly withdrawn in a retrograde panoramic fashion and the colon mucosa was carefully examined including a retroflexed view of the rectum. Findings and interventions are described below. Procedure Difficulty: Colon was long and tortuous and there was some loop formation Findings: Terminal Ileum: Not evaluated Cecum: Focal area of edematous folds with aphthoid ulcers around the appendical orifice - biopsied. Ascending Colon: Normal Transverse Colon: Normal Descending Colon: Normal Sigmoid Colon: Moderate diverticulosis Rectum: Normal Ano-rectum: Moderate internal hemorrhoids Colon preparation: Excellent after some irrigation. [place] Bowel Preparation Scale Right colon; 3 Transverse colon: 3 Left colon; 3 (0 = Unprepared colon segment with mucosa not seen due to solid stool that cannot be cleared. 1 = Portion of mucosa of the colon segment seen, but other areas of the colon segment not well seen due to staining, residual stool and/or opaque liquid. 2 = Minor amount of residual staining, small fragments of stool and/or opaque liquid, but mucosa of colon segment seen well. 3 = Entire mucosa of colon segment seen well with no residual staining, small fragments of stool or opaque liquid) Impression and Post Procedure Diagnosis: Colonoscopy Findings: No polyps were detected Focal area of edematous folds with aphthoid ulcers around the appendical orifice - Likely due to aspirin use (pt takes NSAIDS rarely). Moderate diverticulosis seen in the sigmoid colon Moderate hemorrhoids on retroflexed exam. Plan: Pt has a FU appointment on 10/14/24 with Larissa Boswell NP. Repeat Colonoscopy in 5 years due to a history of adenomatous colon polyps. Above findings were reviewed with the patient and relevant handouts were given and the discharge area.
[2024-09-30 12:46] VITALS: BP 119/48; PULSE 67; RESP 16; TEMP 36.5; O2SAT 98
[2024-09-30 13:01] VITALS: BP 123/69; PULSE 61; RESP 16; TEMP 36.5; O2SAT 97
== END 2024-09-30 13:19 | disposition home or self-care (01) ==
PROVIDERS: PCP Family Medicine; Visit Provider Internal Medicine Gastroenterology
PROC: 0DJD8ZZ Inspection of Lower Intestinal Tract, Via Natural or Artificial Opening Endoscopic (ICD-10-PCS; CPT 45378; principal; 2024-09-30 12:00)
DX: Z12.11 Encounter for screening for malignant neoplasm of colon (principal); Z86.0101 Personal history of adenomatous and serrated colon polyps; K57.30 Diverticulosis of large intestine without perforation or abscess without bleeding; K64.8 Other hemorrhoids; K63.89 Other specified diseases of intestine; Z79.82 Long term (current) use of aspirin
CPT/HCPCS: 45380; 88305; J2003; J2704

== ENCOUNTER → 2024-09-30 10:23 | Outpatient (BNV) | payer BC, SELFPAY | PROVIDERS: PCP Family Medicine; Visit Provider Internal Medicine Gastroenterology | DX: Z12.11 Encounter for screening for malignant neoplasm of colon (principal); Z86.0100 Personal history of colon polyps, unspecified; K57.90 Diverticulosis of intestine, part unspecified, without perforation or abscess without bleeding; K64.8 Other hemorrhoids | CPT/HCPCS: 45380 ==

== ENCOUNTER → 2025-01-05 10:51 | Outpatient (REF) | payer BC, SELFPAY | LOC: HO.CARD 10:51 | PROVIDERS: PCP Family Medicine; Visit Provider Internal Medicine | DX: I35.0 Nonrheumatic aortic (valve) stenosis (principal) | CPT/HCPCS: 93306 ==

== ENCOUNTER → 2025-01-05 10:55 | Outpatient (BNV) | payer BC, SELFPAY | PROVIDERS: PCP Family Medicine; Visit Provider Internal Medicine Cardiovascular Disease | DX: I35.2 Nonrheumatic aortic (valve) stenosis with insufficiency (principal) | CPT/HCPCS: 93306 ==

== ENCOUNTER 2025-01-18 08:47 | Outpatient (AMB) | payer BC, SELFPAY ==
[2025-01-18 08:50] VITALS: BP 126/78; PULSE 67; BMI 30.8
--- NOTE | 2025-01-18 08:50 | A.OFFVIS_ITS ---
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 Required: No Allergies No Known Allergies Allergy (Verified 09/30/24 10:40) Medication List - Last Reconciled 01/18/25 by Melo Balderas MD amlodipine 5 mg PO DAILY 90 days aspirin (Adult Low Dose Aspirin) 81 mg PO DAILY betamethasone, augmented 0.05 % (Diprolene (augmented)) 1 appl topical DAILY 30 days clobetasol 0.05% grams topical Q OTHER DAY docusate sodium 100 mg PO .every other day estradiol 0.01%(0.1mg/gram) grams vaginal fluticasone propionate 50 mcg/actuation (Flonase Allergy Relief) 1 spray intran jose carlos Q12H 30 days lisinopril 20 mg PO DAILY 90 days meclizine 50 mg PO DAILY PRN 90 days multivitamin 1 tab PO DAILY simvastatin 20 mg PO BEDTIME HPI Comments Details: Zoya returns for follow-up regarding aortic stenosis. Since last seen, she states she is feeling good. No complaints like angina or shortness of breath or in fact anything cardiac sounding. Getting along fine. [facility] Medical History Mitral regurgitation Hx of cardiac murmur Elevated cholesterol HTN (hypertension) Screening for cervical cancer Breast cancer screening by mammogram Annual physical exam Surgical History H/O colonoscopy History of breast lump/mass excision Hx of section Family History Father Lymphoma Diabetes Heart disease Mother Heart attack Maternal Uncle Substance abuse in family Maternal Aunt Substance abuse in family Brother Mental health disorder Social History (Updated 05/02/24 @ 11:17 by [facility] Housing: House Are you a primary youth career specialist to a significant other at home: No Do you presently have visiting nurse or other home services: No Alcohol intake: current Alcohol intake frequency: a few times a week Patient Tobacco Use Status: Never used Tobacco e-Cigarette/Vaping Use: Never Used Second Hand Smoke Exposure: No service: No Current occupational status: employed Current occupational exposures/hazards: No Cognitive needs: No Hearing needs: No Vision needs: No Review of Systems Const Denies chills, Denies fatigue, Denies fever(s), Denies frequent falls, Denies weakness, Denies weight gain and Denies weight loss ENT Denies dizziness Card Denies chest pain, Denies leg edema, Denies lightheadedness, Denies palpitations, Denies dyspnea, Denies dyspnea on exertion, Denies orthopnea and Denies other (loss of consciousness) Resp Denies cough, Denies dyspnea and Denies dyspnea on exertion GI Denies hematochezia and Denies change in stool character Musc Denies abnormal gait, Denies muscle weakness, Denies numbness, Denies radiating pain into limb and Denies tingling Neuro Denies abnormal gait, Denies dizziness, Denies frequent falls, Denies numbness, Denies tingling and Denies weakness Endo Denies fatigue and Denies palpitations Physical Exam Vital Signs: Last Vital Signs Pulse 67 01/18/25 08:50 BP 126/78 01/18/25 08:50 BMI result Body Mass Index 30.8 Const General: comfortable and no acute distress Orientation/consciousness: patient oriented x3 HEENT Other: Unremarkable Head: Yes normal to inspection Neck Neck: Yes normal visual inspection Chest Chest palpation & inspection: normal inspection of the chest Resp Auscultation: clear to auscultation bilaterally Cardio Palpation: normal PMI Heart sounds: S1 normal heart sound present, S2 normal heart sound present, no gallops, Murmur heart sound present systolic II/ and at the right sternal border and no rubs GI Palpation (GI): Soft to palpation Back/Spine/Pelvis Other: unremarkable Skin General skin exam: no rashes or lesions noted Neuro General: patient oriented x3 Extrem General: Yes normal to inspection Psych Mental Status: mental status grossly normal Office Procedures EKG Details: EKG with underlying sinus rhythm at 67/Min; CT prolongation to 224 milliseconds; incomplete right bundle-branch block; [place]. [id number], Complete Assessment & Plan Assessment & Plan (1) Non-rheumatic aortic stenosis: Code(s): I35.0 - Nonrheumatic aortic (valve) stenosis Category: Medical Plan: Echocardiogram previously thought to be possibly bicuspid but not described as such in the current study as it was not well visualized. Overall, [id number] aortic stenosis with a mean gradient of 17 mm Hg with a calculated valve area of 1.2 cm2. Findings discussed with patient. We will need periodic monitoring with an echocardiogram. Family screening has also been discussed. In the exercise stress test, she was able to exercise for 9 minutes on Jorge protocol, reached 10.1 Mets. No angina. Normal blood pressure response. No EKG evidence of ischemia. Overall, we will continue to monitor. (2) Essential hypertension: Code(s): I10 - Essential (primary) hypertension Category: Medical Plan: Stable. Remains on amlodipine, lisinopril. (3) First degree heart block: Code(s): I44.0 - Atrioventricular block, first degree Category: Medical Plan: Evidence of mild conduction system disease. Can be monitored on EKGs. Reassured patient for now. Plan Discussion Notes I discussed with the patient regarding her stable cardiovascular health. Her long CT interval and associated conduction slowing were noted, but I reassured her there's no immediate concern unless symptoms arise. We reviewed her echocardiogram findings, the possible bicuspid aortic valve complicated by calcification, which at her age is more probable. Given the stable heart status and absence of symptoms, an annual reassessment is adequate. I emphasized the significance of consistent hypertension medication compliance and highlighted the necessity for immediate reporting of any emergent symptoms such as dizziness or chest pain. The patient was agreeable to this plan and expresses satisfaction with her current state of health. Patient was informed and verbally consented to the use of an ambient scribe for clinic note documentation during this visit. Orders: Orders CA echo transthoracic complete 1 Year I35.0 - Nonrheumatic aortic (valve) stenosis Patient Instructions: - Continue taking your blood pressure medication regularly. - Keep track of your blood pressure at home when possible. - Plan for the next echocardiogram and follow-up appointment next year. - Schedule and complete your blood work through your PCP. - Notify me immediately if you experience chest pain, dizziness, or any new symptoms. Coding Level of Care Code Est Pt Level 4 (41218) Complex EM visit Add On G2211 Diagnoses Non-rheumatic aortic stenosis I35.0 Essential hypertension I10 First degree heart block I44.0 CPT Codes EKG - CPT: 33467-[id number], Complete ([id number])
== END 2025-01-18 09:19 | disposition home or self-care (01) ==
LOC: HO.HCS 08:48
PROVIDERS: PCP Family Medicine; Visit Provider Internal Medicine
DX: I35.0 Nonrheumatic aortic (valve) stenosis (principal); I10 Essential (primary) hypertension; I44.0 Atrioventricular block, first degree
CPT/HCPCS: 93010; 99214

== ENCOUNTER → 2025-01-18 08:47 | Outpatient (BNVA) | payer BC, SELFPAY | PROVIDERS: PCP Family Medicine; Visit Provider Internal Medicine | DX: I35.0 Nonrheumatic aortic (valve) stenosis (principal); I10 Essential (primary) hypertension; I44.0 Atrioventricular block, first degree; Z79.899 Other long term (current) drug therapy | CPT/HCPCS: 93005 ==

== ENCOUNTER 2025-01-23 15:50 | Outpatient (AMB) | payer BC, SELFPAY ==
--- NOTE | 2025-01-23 16:04 | MHC.PC.OV ---
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 Allergies No Known Allergies Allergy (Verified 01/23/25 16:05) Medication List - Last Reconciled 01/23/25 by Víctor aCt MD amlodipine 5 mg PO DAILY 90 days aspirin (Adult Low Dose Aspirin) 81 mg PO DAILY betamethasone, augmented 0.05 % (Diprolene (augmented)) 1 appl topical DAILY 30 days clobetasol 0.05% grams topical Q OTHER DAY docusate sodium 100 mg PO .every other day estradiol 0.01%(0.1mg/gram) grams vaginal fluticasone propionate 50 mcg/actuation (Flonase Allergy Relief) 1 spray intranasal Q12H 30 days lisinopril 20 mg PO DAILY 90 days meclizine 50 mg PO DAILY PRN 90 days multivitamin 1 tab PO DAILY simvastatin 20 mg PO BEDTIME Tobacco use date assessed: 05/02/24 Dental Screening Dental Screen Date: 05/02/24 HPI f/u HTN, preDM HPI Details 65 y/o female presents to f/u HTN, pre-diabetes. Blood pressure today 110/66, 62p. She is on lisinopril 20mg, amlodipine 5mg daily. Last A1c 09/23/24 5.4%. A1c today still in the prediabetes range. Pt reports hand pain, numbness. She also notes burning sensation around her 3rd finger. She notes she sometimes takes advil or ibuprofen for pain relief at night. HPI Comments History of Present Illness Details Documentation assistance for Víctor Cat MD, was provided by Finn Sharp, Recyclable Materials Sorter on 01/23/2025 at 4:18 PM EST. I, Dr. Cat, have read, observed, and verified documentation. [facility] Medical History Mitral regurgitation Hx of cardiac murmur Elevated cholesterol HTN (hypertension) Screening for cervical cancer Breast cancer screening by mammogram Annual physical exam Surgical History H/O colonoscopy History of breast lump/mass excision Hx of section Family History Father Lymphoma Diabetes Heart disease Mother Heart attack Maternal Uncle Substance abuse in family Maternal Aunt Substance abuse in family Brother Mental health disorder Social History (Updated 05/02/24 @ 11:17 by SHERYL An) Housing: House Are you a primary medicare sales representative to a significant other at home: No Do you presently have visiting nurse or other home services: No Alcohol intake: current Alcohol intake frequency: a few times a week Patient Tobacco Use Status: Never used Tobacco e-Cigarette/Vaping Use: Never Used Second Hand Smoke Exposure: No service: No Current occupational status: employed Current occupational exposures/hazards: No Cognitive needs: No Hearing needs: No Vision needs: No Questionnaire Thrive Questionnaire Date Thrive assessed: 09/23/24 I am a: Patient What is your living situation today?: I have a steady place to live Within the past 12 months, did the food you bought not last and you didn't have the money to get more?: Never true Within the past 12 months, did you worry whether your food would run out before you got money to buy more?: Never true Do you have trouble paying for medicines?: No Do you have trouble getting transportation to medical appointments?: No Do you have trouble paying your heating and electricity bill?: No Do you have trouble taking care of your child, family member or friend?: No Do you have trouble with day-to-day activities such as bathing, preparing meals, shopping, managing finances, etc.?: No Are you currently unemployed and looking for a job?: No Are you interested in more education?: No Please select the resources that you would like help with: None Currently or been in a relationship where the following occur: No concerns reported THRIVE Score: 0 FAHAD-7 AMB Questionnaire FAHAD-7 Date FAHAD - 7 assessed: 05/02/24 Source: Developed by Drs. Otto Mckinnon, Cassandra Hart, Larry Reis and colleagues, with an educational edith from [employer]. Review of Systems Const Denies chills, Denies fatigue, Denies fever(s), Denies headache(s) and Denies weakness ENT Denies dizziness and Denies headache(s) Card Denies dyspnea Resp Denies cough, Denies dyspnea, Denies wheezing and Denies other (shortness of breath) Musc Denies numbness and Denies tingling Neuro Denies dizziness, Denies headache(s), Denies numbness, Denies tingling and Denies weakness Psych Denies anxiety and Denies depression Endo Denies fatigue Aller/Immun Denies wheezing Physical exam (Primary Care) Vital Signs: Last Vital Signs Temp 98.4 F 01/23/25 16:06 Pulse 62 01/23/25 16:06 Resp 14 01/23/25 16:06 BP 110/66 01/23/25 16:06 Pulse Ox 97 01/23/25 16:06 Oxygen Delivery Method Room Air 01/23/25 16:06 BMI result Body Mass Index 31.0 Tobacco/Smoking Status: Tobacco use Status Tobacco use date assessed 05/02/24 01/23/25 16:09 Patient Tobacco Use Status Never used Tobacco 01/23/25 16:09 e-Cigarette/Vaping Use Never Used 01/23/25 16:09 Thrive Assessment: Date of Thrive Assessment Date Thrive assessed 09/23/24 01/23/25 16:09 Currently or been in a relationship where the following occur: No concerns reported Const General: well developed; No acute distress Nutritional Appearance: well nourished Orientation/consciousness: patient oriented x3 HENMT Head: Yes normocephalic and Yes atraumatic Eyes General: appearance normal, both eyes and all related structures Pupils: Equal, round and reactive pupils present EOM: EOMs intact bilaterally Resp Effort & Inspection: normal respiratory effort Auscultation: clear to auscultation bilaterally Cardio Rate: regular rate Rhythm: regular rhythm Heart sounds: S1 normal heart sound present, S2 normal heart sound present, no gallops, Murmur heart sound present and no rubs Neuro General: patient oriented x3 and gait normal Cranial nerves: Yes Equal, round and reactive pupils present Psych Affect: normal affect Coding Level of Care Code Est Pt Level 4 (63926) Diagnoses Essential hypertension I10 Pre-diabetes R73.03 Left forearm pain M79.632 Assessment & Plan Assessment & Plan (1) Essential hypertension: Code(s): I10 - Essential (primary) hypertension Category: Medical Plan: Blood?pressure?is?controlled.??Goal?is?less?than?140/90 Continue?current?medication (2) Pre-diabetes: Code(s): R73.03 - Prediabetes Category: Medical Plan: Lipids?well?controlled?at?last?check Continue?current?medication?and?we?will?recheck?with?her?pre?visit?labs?in?August (3) Left forearm pain: Code(s): M79.632 - Pain in left forearm Category: Medical Plan: Left?forearm?and?hand?pain Testing?negative?for?carpal?tunnel Likely?forearm?and?hand?tendinitis Start?NSAIDs Ice/heat Occupation?therapy If?not?improving?will?refer (4) Left forearm pain: Code(s): M79.632 - Pain in left forearm Category: Medical Plan: As?above Orders: Orders OT Evaluation and Treatment Today M79.632 - Pain in left forearm, M79.643 - Pain in unspecified hand Medications: New naproxen 500 mg PO BID 30 days PRN 60 tabs 1RF pain
[2025-01-23 16:06] VITALS: BP 110/66; PULSE 62; RESP 14; TEMP 36.9; O2SAT 97; BMI 31.0
== END 2025-01-23 16:32 | disposition home or self-care (01) ==
LOC: HO.HMCFM 15:51
PROVIDERS: PCP Family Medicine; Visit Provider Family Medicine
DX: I10 Essential (primary) hypertension (principal); R73.03 Prediabetes; M79.632 Pain in left forearm

== ENCOUNTER → 2025-01-23 15:50 | Outpatient (BNVA) | payer BC, SELFPAY | PROVIDERS: PCP Family Medicine; Visit Provider Family Medicine | DX: I10 Essential (primary) hypertension (principal); R73.03 Prediabetes; M79.632 Pain in left forearm | CPT/HCPCS: 83036 ==

== ENCOUNTER 2025-03-06 15:30 | Outpatient (RCR) | payer BC, SELFPAY ==
--- NOTE | 2025-02-07 08:57 | MHC.OT.EP ---
[address] [phone] Occupational Therapy Plan of Care Patient Name: Zoya Rios Date of Evaluation: 02/07/25 Diagnosis: Pain in L FA Pain Location: Can become a 6/10 ; 7/10 w/ overuse of her hand Pain Score: 2 Pain Scale Used: Numeric (0 - 10) Aggravating Factors: typing Alleviating Factors: naproxen (given by ) and icing the hand Assessment: Pt is a 65 yr. old L hand dominant female who reports pain in her L FA for a couple of mos; she reports pain began in her L MF . She reports the pain shoots from RF to MF and then into her volar palm , FA, and wrist. She reports pain is now mostly localized in the middle of her FA. She denies any trauma to her L UE , but reports the pain may have been due to using her computer at work. She saw her PC for and they discussed her pain and pt. was given a referral to OT therapy. Pt presents today w/ full ROM, (denies paresthesia) . pain w/ palpation of her volar palm and flexors of the FA. and L UE weakness. Pt would benefit from skilled OT therapy to address these deficits and increase pt's functional use of her dominant UE Pt denies any X-rays or further diagnostic testing. Frequency and Duration: The patient will be seen 2 xs a week for 4 weeks Short Term Goals: SEE BELOW Senior Living Goals: Pt will be compliant w/jt. protection techniques Pt will report 1/10 pain w/ activity (L UE) Pt will use her L UE to B carry 10 lbs w/ out difficutly Treatment Plan: Therapeutic Exercise Therapeutic Activity Home Exercise Program Splinting Neuro Re-ed Patient Education Edema Control ADL Training Ultrasound NMES Iontophoresis MHP Cold Packs Joint Mobilization Soft Tissue Mobilization Kinesiotaping Electronically Signed By: Christina Peterson OTR/L Please Sign and return to therapist. Thank you once again for your referral.
== END 2025-03-06 15:56 | disposition home or self-care (01) ==
LOC: HO.OT 15:30
PROVIDERS: PCP Family Medicine; Visit Provider Family Medicine
DX: M79.642 Pain in left hand (principal); M79.632 Pain in left forearm
CPT/HCPCS: 97110; 97140; 97165; 97535

== ENCOUNTER 2025-08-25 08:53 | Outpatient (REF) | payer BC, SELFPAY ==
[2025-08-25 09:03] LABS: MANUAL DIFF FLAG NO
--- OUTSIDE RECORDS SUMMARY | 2025-08-25 09:14 | XMS_ITS | Clinical Summary ---
Author Organization [facility] Address [address] [place] [id number] Phone Care Team Providers Care Technical Customer Support Specialist Name Role Phone Víctor Cat MD Primary Care Provider Allergies No known active allergies Medications lisinopril (PRINIVIL,ZESTR IL) 10 MG tablet Take 10 mg by mouth daily. 11/25/2021 Active simvastatin (ZOCOR) 20 MG tablet Take 20 mg by mouth nightly at bedtime. at bedtime. 09/27/2021 Active aspirin 81 MG EC tablet Take 81 mg by mouth daily. Active Active Problems Problem Noted Date Diagnosed Date Hypertension 12/22/2021 HLD (hyperlipidemia) 12/22/2021 Immunizations Immunization Administration Dates Next Due Tdap 12/22/2021 Social History Tobacco Use Types Packs/Day Years Used Date Smoking Tobacco: Never Assessed Tobacco Cessation:Counseling Given: No Education Answer Date Recorded Are you interested in more education? Not on arlene e 2023 Are you concerned about learning? Not on file 2023 No 2023 No 2023 Digital Access Answer Date Recorded No 02/01/2023 No 02/01/2023 Reliable internet access at home? Not on file 02/01/2023 Device with a working camera? Not on file Comments Unknown Sex and Gender Information Value Date Recorded Sex Assigned at Not on file Legal Sex Female 1:39 PM EDT Gender Identity Not on file Sexual Orientation Not on file Last Filed Vital Signs Vital Sign Reading Time Taken Comments Blood Pressure 131/84 12/22/2021 2:42 PM EDT Pulse 67 12/22/2021 2:03 PM EDT Temperature 36.5 C (97.7 F) 12/22/2021 2:42 PM EDT Respiratory Rate 20 12/22/2021 2:03 PM EDT Oxygen Saturation 99% 12/22/2021 2:03 PM EDT Inhaled Oxygen Concentration - - Weight 72.6 kg (160 lb) 12/22/2021 2:03 PM EDT p er pt Height 154.9 cm (5' 1 ) 12/22/2021 2:03 PM EDT per pt Body Mass Index 30.23 12/22/2021 2:03 PM EDT Plan of Treatment Health Maintenance Due Date Last Done Comments BLOOD PRESSURE 1959 CREATININE LEVEL 1959 LIPID PANEL 1959 POTASSIUM LEVEL 1959 DEPRESSION SCREENING 1971 SMOKING Hx and SMOKELESS TOB ACCO SCREENING 01/04/1972 HEPATITIS C SCREENING 1977 MAMMOGRAM 1999 COLOGUARD 01/04/2004 COLONOSCOPY 01/04/2004 COLORECTAL CANCER SCREENING 01/04/2004 FIT TEST 01/04/2004 FOBT 01/04/2004 SIGMOIDOSCOPY 01/04/2004 VIRTUAL COLONOSCOPY 01/04/2004 PNEUMOCOCCAL VACCINES (50+ y ears) (1 of 1 - PCV) 2009 ZOSTER VACCINES (1 of 2) 2009 OSTEOPOROSIS SCREENING INITI AL (ONE-TIME) 01/04/2024 INFLUENZA VACCINE (#1) 2025 COVID-19 VACCINE (1 - 2024-2 6 season) 2025 Adult Td,Tdap Booster 12/23/2031 12/22/2021 RSV VACCINE (1 - 1-dose 75+ series) 2034 HEPATITIS A VACCINES Aged Out No long er eligible based on patient's age to complete this topic HIB VACCINES Aged Out No longer eligi ble based on patient's age to complete this topic MENINGOCOCCAL VACCINES (ACWY) Aged Out No longer eligible based on patient's age to complete this topic MENINGOCOCCAL VACCINES (B) Aged Out N o longer eligible based on patient's age to complete this topic Medical Devices Not on file Insurance [employer] [facility] [employer] [facility] [employer] [facility] Care Teams Technical Customer Support Specialist Relationship Specialty Start Date End Date Víctor Cat MD PCP - General Family Medicine 12/22/21 Additional Source Comments The information contained in this document represents components of the legal health record. It is not the complete legal health record.[facility]
--- OUTSIDE RECORDS SUMMARY | 2025-08-25 09:14 | XMS_ITS | Patient Health Record ---
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
[2025-08-25 09:36] LABS: Hematocrit 38.1 % (37.0-47.0); Hemoglobin 12.5 g/dl (12.0-16.0); Imm Gran Abs Auto 0.02 X10*3/uL (0.00-0.03); Imm Gran Pct Auto 0.3 % (0.0-0.4); Lymphocytes Absolute Auto 2.9 X10*3/uL (1.2-4.9); Mean Corpuscular HGB Conc 32.8 g/dl (31.0-35.0); Mean Corpuscular Hemoglobin 27.9 pg (27.0-33.0); Mean Corpuscular Volume 85.0 fL (80.0-98.0); NRBC Abs Auto 0.000 X10*3/uL (0.0-0.012); NRBC Pct Auto 0.0 /100WBC (0.0-0.2); Platelet Count 336 X10*3/uL (160-400); Red Blood Count 4.48 X10*6/uL (4.20-5.50); White Blood Count 6.9 X10*3/uL (4.8-10.8)
[2025-08-25 10:00] LABS: Appearance Urine Cloudy; Glucose Urine UA Negative (Negative); PH 7.0 (5.0-9.0); Specific Gravity - Urine 1.020 (1.005-1.025); UMIC TRIGGER UACC YES
[2025-08-25 10:14] LABS: UACC Culture Trigger YES
[2025-08-25 10:19] LABS: Alanine Aminotransferase 29 U/L (0-31); Albumin Level 4.4 g/dL (3.5-5.0); Alkaline Phosphatase 70 U/L (39-117); Anion Gap 12 (12-20); Aspartate Amino Transferase 24 U/L (5-31); Blood Urea Nitrogen 18 mg/dL (9-16); Calcium 9.5 mg/dL (8.4-10.2); Carbon Dioxide 25 mmol/L (22-29); Chloride 105 mmol/L (96-108); Cholesterol 163 mg/dL (<200); Estimated Glomerular Filt Rate > 60; HDL Cholesterol 52 mg/dL (>40); Potassium 4.1 mmol/L (3.3-5.1); Sodium 138 mmol/L (135-145); Total Protein 7.3 g/dL (6.5-8.0); Triglycerides 166 mg/dL (<150)
[2025-08-25 11:02] LABS: Microalbum/Creatinine Ratio Ur 21.9 ug/mg cr (<30)
== END 2025-08-25 08:54 | disposition home or self-care (01) ==
LOC: HO.LAB 08:53
PROVIDERS: PCP Family Medicine; Visit Provider Family Medicine
DX: Z00.00 Encounter for general adult medical examination without abnormal findings (principal); I10 Essential (primary) hypertension
CPT/HCPCS: 36415; 80053; 80061; 81001; 81003; 82043; 82570; 84443; 85025; 87086

== ENCOUNTER 2025-08-29 15:18 | Outpatient (AMB) | payer BC, SELFPAY ==
--- NOTE | 2025-08-29 15:23 | MHC.PC.OV ---
Vital Signs 08/29/25 15:29 Height 5 ft 1 in Weight 165 lb 4 oz BMI 31.2 BP 135/63 Blood Pressure Location Lt brachial Position Sitting Respiration 16 Pulse 67 Pulse Source Pulse Oximeter Temp 97.8 F Temp Source Oral Pulse Oximetry (%) 100 Oxygen Delivery Method Room Air Intake Visit Reasons: CPE with f/u labs and health maint. 30 mins Intake Note: patient here for CPE with f/u labs and health maint. 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 Is last menstrual period known: No Post menopausal: No Patient : No Allergies No Known Allergies Allergy (Verified 08/29/25 15:28) Medication List - Last Reconciled 08/29/25 by Víctor Cat MD amlodipine 5 mg PO DAILY 90 days aspirin (Adult Low Dose Aspirin) 81 mg PO DAILY betamethasone, augmented 0.05 % (Diprolene (augmented)) 1 appl topical DAILY 30 days clobetasol 0.05% grams topical Q OTHER DAY docusate sodium 100 mg PO .every other day estradiol 0.01%(0.1mg/gram) grams vaginal fluticasone propionate 50 mcg/actuation (Flonase Allergy Relief) 1 spray intranasal Q12H 30 days lisinopril 20 mg PO DAILY 90 days meclizine 50 mg PO DAILY PRN 90 days multivitamin 1 tab PO DAILY naproxen 500 mg PO BID PRN 30 days simvastatin 20 mg PO BEDTIME Tobacco use date assessed: 08/29/25 Fall risk assessment: No Falls in past year Last assessed Fall Risk: 08/29/25 Dental Screening Dental Screen Date: 08/29/25 Did you have a dental visit in the last 12 months?: Yes Did you have a dental problem in the last 6 months where you did not have access to dental care?: No Was dental information given to patient?: Patient has dentist HPI CPE with f/u labs and health maint. 30 mins HPI Details 65 y/o female presents for CPE with f/u labs and health maint. Labs drawn 08/25/25. Reviewed labs with pt. Fasting glucose 102. Triglycerides 166. TC 163. LDL 78. HDL 52. Blood pressure today 135/63, 67p. She is on lisinopril 20mg, amlodipine 5mg daily. [facility] Medical History Mitral regurgitation Hx of cardiac murmur Elevated cholesterol HTN (hypertension) Screening for cervical cancer Breast cancer screening by mammogram Annual physical exam Surgical History H/O colonoscopy History of breast lump/mass excision Hx of section Family History Father Lymphoma Diabetes Heart disease Mother Heart attack Maternal Uncle Substance abuse in family Maternal Aunt Substance abuse in family Brother Mental health disorder Social History (Updated 08/29/25 @ 15:29 by AMADO Stroud) Housing: House Are you a primary childcare director to a significant other at home: No Do you presently have visiting nurse or other home services: No Alcohol intake: current Alcohol intake frequency: a few times a week Patient Tobacco Use Status: Never used Tobacco e-Cigarette/Vaping Use: Never Used Second Hand Smoke Exposure: No Use of substances other than those prescribed or required for medical reasons: No Patient : No service: No Current occupational status: employed Current occupational exposures/hazards: No Cognitive needs: No Hearing needs: No Vision needs: No Questionnaire PHQ-9 Over the last 2 weeks, how often have you been bothered by any of the following problems? 1. Little interest or pleasure in doing things: not at all 2. Feeling down, depressed, or hopeless: several days 3. Trouble falling or staying asleep, or sleeping too much: more than half the days 4. Feeling tired or having little energy: more than half the days 5. Poor appetite or overeating: not at all 6. Feeling bad about yourself - or that you are a failure or have let yourself or your family down: not at all 7. Trouble concentrating on things, such as reading the newspaper or watching television: not at all 8. Moving or speaking so slowly that other people could have noticed. Or the opposite - being so fidgety or restless that you have been moving around a lot more than usual: not at all 9. Thoughts that you would be better off or of hurting yourself in some way: not at all Total score: 5 Depression Screening Interpretation: Positive Depression Screening Follow-up: Declines treatment Depression Screening Done: Yes 35221 - PHQ-9 Billing: Yes Source: Developed by Drs. Otto Mckinnon, Cassandra Hart, Larry Reis and colleagues, with an educational edith from [email or web address]. Thrive Questionnaire Date Thrive assessed: 08/29/25 I am a: Patient What is your living situation today?: I have a steady place to live Within the past 12 months, did the food you bought not last and you didn't have the money to get more?: Never true Within the past 12 months, did you worry whether your food would run out before you got money to buy more?: Never true Do you have trouble paying for medicines?: No Do you have trouble getting transportation to medical appointments?: No Do you have trouble paying your heating and electricity bill?: No Do you have trouble taking care of your child, family member or friend?: No Do you have trouble with day-to-day activities such as bathing, preparing meals, shopping, managing finances, etc.?: No Are you currently unemployed and looking for a job?: No Are you interested in more education?: No Please select the resources that you would like help with: None Currently or been in a relationship where the following occur: No concerns reported THRIVE Score: 0 AUDIT C Alcohol Use Questionnaire (AUDIT-C) 1. How often do you have a drink containing alcohol?: 2-3 times a week 2. How many drinks containing alcohol do you have on a typical day when you are drinking?: 1 or 2 3. How often do you have six or more drinks on one occasion?: Never Total Score: 3 Score Reviewed/Action Taken: Yes FAHAD-7 AMB Questionnaire FAHAD-7 Date FAHAD - 7 assessed: 08/29/25 Feeling nervous, anxious, or on edge: 1 = Several days Not being able to stop or control worryin = Not at all Worrying too much about different things: 0 = Not at all Trouble relaxin = Not at all Being so restless that it is hard to sit still: 0 = Not at all Becoming easily annoyed or irritable: 0 = Not at all Feeling afraid as if something awful might happen: 0 = Not at all Total FAHAD-7 score (0-4 normal; 5-9 mild; 10-14 moderate; 15-21 severe): 1 Source: Developed by Cassandra Martinez B.W. Tanner, Larry Reis and colleagues, with an educational edith from [email or web address]. FAHAD-7 Assessment Billing FAHAD-7 Assessment Tool: FAHAD-7 Assessment 38685 Review of Systems Const Denies chills, Denies fatigue, Denies fever(s), Denies headache(s) and Denies weakness Eyes Denies change in vision ENT Denies dizziness, Denies headache(s), Denies hearing loss, Denies nasal congestion, Denies sinus pain, Denies sinus pressure and Denies sore throat Card Denies chest pain, Denies lightheadedness, Denies dyspnea and Denies other (palpitations) Resp Denies cough, Denies dyspnea and Denies wheezing GI Denies abdominal pain, Denies melena, Denies hematochezia, Denies change in bowel habits, Denies dyspepsia and Denies nausea Denies hematuria and Denies dysuria Musc Denies abnormal gait, Denies myalgias, Denies arthralgias, Denies numbness and Denies tingling Skin/Breast Denies rash, Denies unusual bruising and Denies wounds Neuro Denies abnormal gait, Denies dizziness, Denies headache(s), Denies memory loss, Denies numbness, Denies Sensory deficit (Neuro), Denies tingling and Denies weakness Psych Denies anxiety, Denies depression and Denies memory loss Endo Denies cold intolerance, Denies fatigue, Denies heat intolerance, Denies polydipsia and Denies polyuria Junior/Lymph Denies easy bleeding and Denies easy bruising Aller/Immun Denies wheezing Physical exam (Primary Care) Vital Signs: Last Vital Signs Temp 97.8 F 08/29/25 15:29 Pulse 67 08/29/25 15:29 Resp 16 08/29/25 15:29 BP 135/63 08/29/25 15:29 Pulse Ox 100 08/29/25 15:29 Oxygen Delivery Method Room Air 08/29/25 15:29 BMI result Body Mass Index 31.2 Tobacco/Smoking Status: Tobacco use Status Tobacco use date assessed 08/29/25 08/29/25 15:32 Patient Tobacco Use Status Never used Tobacco 08/29/25 15:29 e-Cigarette/Vaping Use Never Used 08/29/25 15:29 PHQ-9: PHQ-9 Score PHQ-9: Total score 5 08/29/25 15:47 Depression Screening Interpretation: Positive Depression Screening Follow-up: Declines treatment Thrive Assessment: Date of Thrive Assessment Date Thrive assessed 08/29/25 08/29/25 15:37 Currently or been in a relationship where the following occur: No concerns reported Const General: no acute distress, well developed, alert and awake Nutritional Appearance: well nourished Orientation/consciousness: patient oriented x3 HENMT Head: Yes normocephalic and Yes atraumatic Ears: hearing grossly normal bilaterally and TM's normal bilaterally General nose exam: Normal external nose present and Normal nares present Mouth: Normal oral and palatal mucosa present and moist mucous membranes Teeth and gingiva: dentition normal Throat: Yes posterior oropharynx normal Eyes General: appearance normal, both eyes and all related structures Pupils: Equal, round and reactive pupils present and Pupil accommodation reflex normal EOM: EOMs intact bilaterally Neck Neck: Yes normal visual inspection, Yes no lymphadenopathy and Yes trachea midline Thyroid: Thyroid normal Carotids: no bruits Lymphatic: no lymphadenopathy noted Chest Chest palpation & inspection: normal inspection of the chest Resp Effort & Inspection: normal respiratory effort Auscultation: clear to auscultation bilaterally Cardio Rate: regular rate Rhythm: regular rhythm Heart sounds: S1 normal heart sound present, S2 normal heart sound present, no gallops, no murmurs and no rubs Bruits: no abdominal aortic bruits and no carotid bruits GI Palpation (GI): No Abdominal aortic bruit present, Soft to palpation, nontender, No hepatosplenomegaly present and No Rebound tenderness present Auscultation: normal bowel sounds General: Yes no CVA tenderness Back/Spine/Pelvis Back: no CVA tenderness Cervical Spine: cervical ROM normal and No Cervical spine tenderness Thoracic/Lumbar Spine: thoraco-lumbar ROM normal, No pain with thoraco-lumbar ROM, No thoracic spinal tenderness and No lumbar spinal tenderness Skin Lesions: no lesions Rashes: no rashes Trauma: no lacerations or abrasions Wounds: no wounds Nails: normal Neuro General: patient oriented x3 Cranial nerves: Yes Equal, round and reactive pupils present Cognition (Neuro): normal cognition Gait exam (Neuro): Normal gait present Motor exam (neuro): 5/5 motor strength present throughout Sensory Exam: No Sensory deficit (Neuro) Deep tendon reflexes (DTR's): Right patellar reflex intensity grade: 2+ and Left patellar reflex intensity grade: 2+ Extrem General: Yes normal to inspection and No edema Psych Appearance: grossly normal Affect: normal affect Attitude: cooperative Thought process: Normal thought process present Coding Level of Care Code Est Pt Level 3 (64639) Est Pt Prev Care >65y(26423) Diagnoses Adult general medical exam Z00.00 Essential hypertension I10 Difficulty sleeping G47.9 Screening for cervical cancer Z12.4 Screening for colon cancer Z12.11 Breast cancer screening by mammogram Z12. Screening for osteoporosis Z13.820 Vertigo R42 Immunization counseling Z71.85 Additional Codes FAHAD-7 Assessment Billing - FAHAD-7 Assessment Tool: FAHAD-7 Assessment 20896 ([id number]) PHQ-9 - 23944 - PHQ-9 Billing: Yes ([id number]) Assessment & Plan Assessment & Plan (1) Adult general medical exam: Code(s): Z00.00 - Encounter for general adult medical examination without abnormal findings Category: Medical Plan: 65-year-old female presents for complete physical exam Encouraged healthy diet with active lifestyle and plenty of exercise (2) Essential hypertension: Code(s): I10 - Essential (primary) hypertension Category: Medical Plan: Blood pressures are a little elevated today. Goal is less than 130/80 Continue current medication regimen Work on diet, exercise and weight loss. Avoid salt and sodium. Get plenty of rest and work on relaxation (3) Difficulty sleeping: Code(s): G47.9 - Sleep disorder, unspecified Category: Medical (4) Screening for cervical cancer: Code(s): Z12.4 - Encounter for screening for malignant neoplasm of cervix Category: Medical Plan: Followed by [facility] Up-to-date with Pap smears (5) Screening for colon cancer: Code(s): Z12.11 - Encounter for screening for malignant neoplasm of colon Category: Medical Plan: Colonoscopy with Dr. Lepe September 2023 Follow-up in 5 years. Up-to-date (6) Breast cancer screening by mammogram: Code(s): Z12.31 - Encounter for screening mammogram for malignant neoplasm of breast Category: Medical Plan: Up-to-date with mammogram and will continue annual screening No evidence of malignancy on last test (7) Screening for osteoporosis: Code(s): Z13.820 - Encounter for screening for osteoporosis Category: Medical Plan: Bone density in 2023 was negative for osteoporosis. Normal bone density. Will continue screening next year (8) Vertigo: Code(s): R42 - Dizziness and giddiness Category: Medical Plan: Several intermittent episodes of vertigo She would like to see ENT-referred (9) Immunization counseling: Code(s): Z71.85 - Encounter for immunization safety counseling Category: Medical Plan: Recommended pneumonia shot. She is due for Tdap - she will receive this today Recommended COVID shot Otherwise up-to-date Plan Difficulty sleeping She has had significant changes in her schedule and lifestyle. Work at normalizing schedule. Work at stress reduction and [employer] sleep hygiene. Work on increasing exercise again. Orders: Orders Lipid Panel Today Z00.00 - Encounter for general adult medical examination without abnormal findings Comprehensive [place]. Panel Fast Today Z00.00 - Encounter for general adult medical examination without abnormal findings TDaP Immunization Today Z23 - Encounter for immunization Hemoglobin A1c Today R73.01 - Impaired fasting glucose Microalbumin, Random (w Creat) Today I10 - Essential (primary) hypertension Referrals Ear/Nose/Throat Referral R42 - Dizziness and giddiness Medications: New Boostrix Tdap (diphth,pertus(acell),tetanus) 0.5 mL IM ONCE 0.5 mL 0RF NS Z23 - Encounter for immunization
[2025-08-29 15:29] VITALS: BP 135/63; PULSE 67; RESP 16; TEMP 36.6; O2SAT 100; BMI 31.2
--- OUTSIDE RECORDS SUMMARY | 2025-08-29 16:30 | XMS_ITS | Clinical Summary ---
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 It is not the complete legal health record.[facility]ly [facility]
--- OUTSIDE RECORDS SUMMARY | 2025-08-29 16:30 | XMS_ITS | Patient Health Record ---
Author Organization [facility] Address [address] [place] [address] Care Team Providers Care Java Developer Name Role Phone Nas Pruitt Jr Reason For Referral No Information Plan Of Treatment No Information
== END 2025-08-29 16:41 | disposition home or self-care (01) ==
LOC: HO.HMCFM 15:19
PROVIDERS: PCP Family Medicine; Visit Provider Family Medicine
DX: Z00.00 Encounter for general adult medical examination without abnormal findings (principal); I10 Essential (primary) hypertension; G47.00 Insomnia, unspecified; R73.03 Prediabetes; R42 Dizziness and giddiness; Z23 Encounter for immunization

== ENCOUNTER → 2025-08-29 15:18 | Outpatient (BNVA) | payer BC, SELFPAY | PROVIDERS: PCP Family Medicine; Visit Provider Family Medicine | DX: Z13.31 Encounter for screening for depression (principal); Z13.39 Encounter for screening examination for other mental health and behavioral disorders; Z23 Encounter for immunization; R73.01 Impaired fasting glucose | CPT/HCPCS: 83036; 90471; 90715; 96127 ==